=== PATIENT | female | born 1950 | race Caucasian/White ===

== ENCOUNTER 2021-03-15 01:09 | Day surgery (SDC) | payer MEDICARE, SELFPAY ==
[2021-03-07 08:33] VITALS: BMI 23.0
[2021-03-15 06:27] VITALS: BP 112/59; PULSE 98; RESP 16; TEMP 36.5; O2SAT 100
[2021-03-15] MEDS: LACTATED RINGERS 1,000 ML 150 ML IV CONT (06:37)
[2021-03-15 06:42] LABS: Glucose Point of Care 144 mg/dl (65-105)
--- NOTE | 2021-03-15 07:19 | P.PNAN_ITS ---
Anes - Initial Pre Proc Eval Procedure: Operation Date: 03/15/21 07:30 Proposed Procedures p Colonoscopy - Jacobo Ortega MD Date/Time: 03/15/21 07:19 Surgeon: Jacobo Ortega MD Pre Op Diagnosis: diarrhea Patient Data Age: 70 Gender: F Height: 1.65 m Weight: 59.4 kg Last Vital Signs Temp 97.7 F 03/15/21 06:27 Pulse 98 03/15/21 06:27 Resp 16 03/15/21 06:27 BP 112/59 L 03/15/21 06:27 Pulse Ox 100 03/15/21 06:27 Allergies Allergy/AdvReac Type Severity Reaction Status Date / Time No Known Allergies Allergy Verified 03/15/21 06:25 Home Medications Medication Instructions Recorded Confirmed Type dulaglutide 1.5 mg/0.5 mL 1.5 mg SUBCUT WEEKLY 02/12/21 03/15/21 History subcutaneous pen injector metformin 850 mg tablet 1,700 mg PO BID 02/12/21 03/15/21 History aspirin 325 mg PO DAILY 03/07/21 03/15/21 History atorvastatin 20 mg PO HS 03/07/21 03/15/21 History empagliflozin [Jardiance] 25 mg PO DAILY 03/07/21 03/15/21 History glyburide 10 mg PO BID 03/07/21 03/15/21 History lisinopril 10 mg PO DAILY 03/07/21 03/15/21 History multivitamin 1 tablet PO DAILY 03/07/21 03/15/21 History omega 2-mwj-wyr-fish oil [Fish Oil] 1 cap PO DAILY 03/07/21 03/15/21 History omeprazole-sodium bicarbonate 1 cap PO DAILY 03/07/21 03/15/21 History [Zegerid] Laboratory Tests 03/15/21 06:40 POC Capillary Glucose 144 mg/dl H mg/dl (65-105) Patient hx anesthesia problems: none Family hx anesthesia problems: none Results Review: All pre-operative results and documents have been reviewed as part of the pre-operative evaluation. [facility] Past Medical History Medical History (Updated 02/12/21 @ 15:40 by JAMEL Gilmore) Diabetes Encounter for screening colonoscopy HLD (hyperlipidemia) HTN (hypertension) Social History Social History (Updated 02/12/21 @ 13:22 by Yair Spicer MA) Years smoked: 40 Smoking status: Current some day smoker Tobacco type: cigarettes Second hand tobacco smoke exposure: No Alcohol intake: current Substance use: unknown Substance use type: does not use Living arrangements: with family Gender identity (if verbalized by the patient): Female Spiritual care concerns: No Agree to blood products: Yes Anes - Eval Final PreProcedure Day of Procedure 03/15/21 07:19 Patient weight: normal Heart: regular rate and rhythm Lungs: clear to auscultation Airway: Mallampati scale class II Neurological: alert and oriented Last oral intake: >/= 8 hours ASA classification: III Emergent: no Anesthetic plan: proceed Anesthesia type and monitoring: general GIVS and standard monitoring Results Review: All pre-operative results and documents have been reviewed as part of the pre-operative evaluation. Informed Consent: The patient's anesthetic plan and its attendant risks and benefits were discussed with the patient/family/POA. Questions were solicited and answers provided to the satisfaction of the patient/family/POA.
--- NOTE | 2021-03-15 07:31 | WPDGICN ---
Assessment and Plan Assessment and plan (1) Encounter for screening colonoscopy: Code(s): Z12.11 - Encounter for screening for malignant neoplasm of colon Status: Acute Assessment and Plan: Screening colonoscopy to be performed because of age also because of diarrhea. Further recommendations will be given after endoscopy. (2) Diarrhea: Code(s): R19.7 - Diarrhea, unspecified Status: Acute Assessment and Plan: Patient has a 4-5 months history of continuing diarrhea during the day. Differential is quite broad. It may be related to her magnesium supplements and she is advised to discontinue this. Patient does have underlying diabetes for many years suggesting she may have diabetic diarrhea. For this reason fiber supplementation is encouraged. And if diarrhea persists we may want to hold the PPI and changed to something like AcipHex. colonoscopy is anticipated. Further recommendations will be given after endoscopy. (3) Diabetes: Code(s): E11.9 - Type 2 diabetes mellitus without complications Status: Acute GI Consult Note Consult date/time: 03/15/21 07:31 HPI: Margie Gonzalez is a 70 year old female Presents for evaluation of diarrhea. Patient reports 4-5 month history of frequent loose diarrhea stools. This occurs throughout the day. She will have several loose stools during the day very infrequently will be formed. She denies any significant pain. She has had no bleeding. No fever. She has recently been found to have a right adrenal tumor in surgery is planned. Previous colonoscopy 2014 was unremarkable. Patient's family history is noncontributory. Past medical history is significant for acid reflux for which she has been on omeprazole for more than 10 years. She has been treated for diabetes mellitus. And takes iejq-wkm-allrzcy magnesium but does never been told she was deficient. Review of Systems Review of Systems: All systems reviewed & are unremarkable except as noted in HPI and below PMFSH Past Medical History Medical History (Updated 03/15/21 @ 07:33 by Jacobo Ortega MD) Diabetes Encounter for screening colonoscopy HLD (hyperlipidemia) HTN (hypertension) Social History Social History (Updated 02/12/21 @ 13:22 by Yair Spicer MA) Years smoked: 40 Smoking status: Current some day smoker Tobacco type: cigarettes Second hand tobacco smoke exposure: No Alcohol intake: current Substance use: unknown Substance use type: does not use Living arrangements: with family Gender identity (if verbalized by the patient): Female Spiritual care concerns: No Agree to blood products: Yes Meds Home Medications and Allergies Home Medications Medication Instructions Recorded Confirmed Type dulaglutide 1.5 mg/0.5 mL 1.5 mg SUBCUT WEEKLY 02/12/21 03/15/21 History subcutaneous pen injector metformin 850 mg tablet 1,700 mg PO BID 02/12/21 03/15/21 History aspirin 325 mg PO DAILY 03/07/21 03/15/21 History atorvastatin 20 mg PO HS 03/07/21 03/15/21 History empagliflozin [Jardiance] 25 mg PO DAILY 03/07/21 03/15/21 History glyburide 10 mg PO BID 03/07/21 03/15/21 History lisinopril 10 mg PO DAILY 03/07/21 03/15/21 History multivitamin 1 tablet PO DAILY 03/07/21 03/15/21 History omega 3-rnt-yjs-fish oil [Fish Oil] 1 cap PO DAILY 03/07/21 03/15/21 History omeprazole-sodium bicarbonate 1 cap PO DAILY 03/07/21 03/15/21 History [Zegerid] Allergies Allergy/AdvReac Type Severity Reaction Status Date / Time No Known Allergies Allergy Verified 03/15/21 06:25 Vital Signs Vital Signs - 24 hr 03/15/21 06:27 Temperature 97.7 F Pulse Rate 98 Respiratory Rate 16 Blood Pressure 112/59 L Pulse Oximetry 100 Exam Narrative: Physical exam reveals her to be alert. Vital signs stable. HEENT exam is unremarkable. Patient is anicteric. Lungs are clear to auscultation and percussion. Heart is without murmur or extra soun
[2021-03-15 07:56] VITALS: BP 89/42; PULSE 80; RESP 20; O2SAT 98
[2021-03-15 08:06] VITALS: BP 88/51; PULSE 80; RESP 20; O2SAT 98
[2021-03-15 08:16] VITALS: BP 112/55; PULSE 75; RESP 22; O2SAT 94
== END 2021-03-15 08:35 | disposition home or self-care (01) ==
PROVIDERS: PCP Family Medicine; Visit Provider Internal Medicine Gastroenterology
PROC: 0DJD8ZZ Inspection of Lower Intestinal Tract, Via Natural or Artificial Opening Endoscopic (ICD-10-PCS; CPT 45378; principal; 2021-03-15 07:30)
DX: Z12.11 Encounter for screening for malignant neoplasm of colon (principal); R19.7 Diarrhea, unspecified; E11.9 Type 2 diabetes mellitus without complications; I10 Essential (primary) hypertension; E78.5 Hyperlipidemia, unspecified; F17.210 Nicotine dependence, cigarettes, uncomplicated; Z79.84 Long term (current) use of oral hypoglycemic drugs; Z79.82 Long term (current) use of aspirin
CPT/HCPCS: 45380; 82948; 88305; J2704; J7120

== ENCOUNTER 2021-08-03 13:10 | Outpatient (CLI) | payer MEDICARE, SELFPAY ==
--- NOTE | ~2021-08-03 | XR_ITS ---
XR abdomen/kub 1V 08/03/2021 13:39 INDICATION: Gross hematuria TECHNIQUE: KUB COMPARISON: No prior studies for comparison. FINDINGS: Bowel gas pattern is normal. Moderate colonic fecal loading. There are surgical changes in the left hip. Moderate lumbar spondylosis with levocurvature. There is no evidence of free air, mass, organomegaly, ascites or obstruction. No abnormal calculi are seen. The bones appear intact. IMPRESSION: 1: No acute abdominal abnormality identified. Reviewed, dictated and finalized at location A. ICATIONS INTERN
== END 2021-08-03 13:11 | disposition home or self-care (01) ==
PROVIDERS: PCP Family Medicine; Visit Provider Nurse Practitioner Adult Health
DX: R31.0 Gross hematuria (principal)
CPT/HCPCS: 74018

== ENCOUNTER 2022-11-08 10:37 | Outpatient (CLI) | payer MEDICARE, SELFPAY ==
[2022-11-08 10:50] LABS: Basophils Percent Auto 0.5 % (0.2-1.2); Eosinophils Absolute Auto 0.1 K/mm3 (0-0.3); Eosinophils Percent Auto 1.3 % (0-4.4); Hematocrit 37.2 % (37.0-47.0); Hemoglobin 10.6 g/dL (12.0-15.0); Immature Granulocyte Absolute 0.06 K/mm3 (0.00-0.031); Immature Granulocyte Percent A 0.8 % (0-0.5); Lymphocytes Absolute Auto 0.86 K/mm3 (0.9-3.2); Lymphocytes Percent Auto 11.4 % (18.3-44.2); Mean Corpuscular HGB Conc 28.5 g/dl (32-36); Mean Corpuscular Hemoglobin 19.8 pg (26-34); Mean Corpuscular Volume 69.5 fl (80-100); Mean Platelet Volume 8.2 fl (7.4-10.4); Monocytes Absolute Auto 0.6 K/mm3 (0.1-0.6); Monocytes Percent Auto 8.5 % (2.6-8.5); Neutrophils Absolute Auto 5.9 K/mm3 (1.3-6.7); Neutrophils Percent Auto 77.5 % (45.5-73.1); Platelet Count Result 343 k/mm3 (150-375); Red Blood Count 5.35 M/mm3 (4.2-5.4); White Blood Count 7.6 K/mm3 (4.5-10.0)
[2022-11-08 10:56] LABS: Anisocytosis 1+ (NORMAL); Hypochromasia 1+ (NORMAL); Ovalocytes 1+ (NORMAL); Platelet Estimate Adequate (Adequate); Poikilocytosis 1+ (NORMAL); Schistocytes None Seen (NORMAL)
[2022-11-08 12:19] LABS: Iron 30 ug/dL (37-170)
[2022-11-08 12:27] LABS: Alanine Aminotransferase 25 U/L (6-35); Albumin Level 4.5 g/dL (3.5-5.1); Alkaline Phosphatase 112 U/L (38-126); Anion Gap 11 mmol/L (8-16); Aspartate Amino Transferase 31 U/L (14-36); Bilirubin,Total 0.5 mg/dL (0.2-1.3); Blood Urea Nitrogen 7 mg/dL (7-17); Calcium 9.7 mg/dL (8.4-10.2); Carbon Dioxide 26 mmol/L (22-30); Chloride 96 mmol/L (98-107); Estimated Glomerular Filt Rate > 60; Glucose 124 mg/dL (65-110); Potassium 4.3 mmol/L (3.4-5.0); Sodium 133 mmol/L (137-145)
[2022-11-08 12:36] LABS: Percent Iron Saturation 6 % (20-50)
[2022-11-08 12:57] LABS: Ferritin 6.75 ng/mL (11.1-264)
[2022-11-08 13:40] LABS: Folic Acid 10.1 ng/mL (2.76->20)
== END 2022-11-08 10:38 | disposition home or self-care (01) ==
LOC: ANHLAB 10:39
PROVIDERS: PCP Family Medicine; Visit Provider Internal Medicine Hematology & Oncology
DX: D64.9 Anemia, unspecified (principal)
CPT/HCPCS: 36415; 80053; 82607; 82728; 82746; 83540; 83550; 85025

== ENCOUNTER 2022-11-27 10:37 | Outpatient (CLI) | payer MEDICARE, SELFPAY ==
[2022-11-28 18:38] LABS: Vitamin D 25 Hydroxy 66.1 ng/mL
== END 2022-11-28 10:38 | disposition home or self-care (01) ==
PROVIDERS: PCP Family Medicine; Visit Provider Internal Medicine Hematology & Oncology
DX: M85.89 Other specified disorders of bone density and structure, multiple sites (principal)
CPT/HCPCS: 36415; 82306

== ENCOUNTER 2023-02-27 08:43 | Outpatient (CLI) | payer MEDICARE, SELFPAY ==
--- NOTE | ~2023-02-27 | DEXA_ITS ---
Bone Density Report Name: GUZMAN MIMS Age: 72 Sex: Female Ethnicity: White Date of : 1950 Indication: osteopenia; parental hip fracture; height loss; prior fracture; Referring Provider: CLAYTON MANRIQUEZ Study: Bone densitometry was performed. Exam Date: February 27, 2023 Accession number: [id number] Bone Density: Region BMD T-score Z-score Classification AP Spine(L1-L4) 1.022 -0.2 2.0 Normal Femoral Neck (Right) 0.558 -2.6 -0.7 Osteoporosis Total Hip (Right) 0.622 -2.6 -1.0 Osteoporosis World Health Organization criteria for BMD impression classify patients as: Normal (T-score at or above -1.0), Osteopenia (T-score between -1.0 and -2.5), or Osteoporosis (T-score at or below -2.5). 10-year Fracture Risk: FRAX not reported because: Some T-score for Spine Total or Hip Total or Femoral Neck at or below -2.5 Previous Exams: Region Exam Age BMD T-score BMD Change BMD Change Date g/cm2 vs Baseline vs Previous AP Spine (L1-L4) 02/27/2023 72 1.022 -0.2 -0.044 (-4.1%) -0.044 (-4.1%) 02/28/2017 66 1.065 0.2 Total Hip(Right) 02/27/2023 72 0.622 -2.6 -0.184 (-22.8% -0.184 (-22.8% 02/28/2017 66 0.805 -1.1 *Denotes significance at 95% confidence level, LSC for AP Spine = 0.022 g/cm2, LSC for Total Hip = 0.027 g/cm2 Clinical Information Provided by Patient: Has had a low trauma fracture Parent has had a hip fracture Has used the following medications: Vitamin D Patient maximum height was 65 Menopause Age: 56 No regular weight bearing exercise Drinks caffeinated beverages Onset of menses at age 13 Number of children 2 Impression: The patient has established osteoporosis, based on the Right Total Hip T-score and the existence of a prior fracture. The patient has risk factors, including: parental hip fracture, previous fracture. The BMD for the AP Spine (L1-L4) decreased, changing by -4.1% since the last DXA exam. The BMD for the Total Hip(Right) decreased, changing by -22.8% since the last DXA exam. Discussion: HIGH RISK OF FRACTURE. BONE DENSITY IS UNDESIRABLY LOW AT ONE OR MORE SKELETAL SITES, CONSISTENT WITH POSTMENOPAUSAL OSTEOPOROSIS. This patient's lowest T-score, in a patient who has previously fractured, meets the World Health Organization's (WHO) criteria for severe osteoporosis. In untreated patients, the risk of osteoporotic fracture increases approximately two-fold for each 1.0 SD decrease in T-score. Low bone density is not the only risk factor for fracture; also consider factors such as patient's age, frai
== END 2023-02-27 08:44 | disposition home or self-care (01) ==
PROVIDERS: Visit Provider Internal Medicine Hematology & Oncology
DX: M85.89 Other specified disorders of bone density and structure, multiple sites (principal); M81.0 Age-related osteoporosis without current pathological fracture
CPT/HCPCS: 77080

== ENCOUNTER 2023-10-15 14:39 | Outpatient (CLI) | payer MEDICARE, SELFPAY ==
--- NOTE | ~2023-10-15 | CT_ITS ---
Noncontrast CT scan of the left femur CLINICAL HISTORY: Pain technique: Axial noncontrast imaging of the left femur was performed. Sagittal and coronal reformatted images were constructed. Dose reduction technique was used on this scan by u tilizing automated exposure control and iterative reconstruction technique. The dose-length product ( DLP) was 854.62 mGy-cm. Findings: Patient is status post prior ORIF of the proximal left femur for presumed now healed proxim al femoral fracture. No acute fracture or dislocation seen. No hardware complication is evident. Prox imal medullary magda with interlocking dynamic femoral neck screw are present. There is probable mild d egenerative change of the left hip joint. No periosteal reaction identified. No destructive bony lesi on seen. No joint effusion identified. Visualized musculature in the left thigh is unremarkable. No muscle atrophy evident. No soft tissue m ass or fluid collection seen. Subcutaneous soft tissues are unremarkable. IMPRESSION: No acute abnormality. Prior ORIF at the proximal left femur. No hardware complication is evident. Mild degenerative change left hip joint. Reviewed, dictated and finalized at [facility].
== END 2023-10-15 14:40 | disposition home or self-care (01) ==
PROVIDERS: Visit Provider Family Medicine
DX: M79.652 Pain in left thigh (principal); M16.12 Unilateral primary osteoarthritis, left hip
CPT/HCPCS: 36415; 73700; 80053

== ENCOUNTER → 2024-01-12 13:37 | Outpatient (RCR) | payer MEDICARE, SELFPAY ==
--- NOTE | 2022-12-11 16:19 | PHAR ---
Feraheme (ferumoxytol) 510mg weekly times 2 doses, Injectafer (ferric carboxymaltose) 750mg iv weekly times 2 doses and Venofer (iron sucrose) 300mg daily times 3 doses are interchangeable per standing order. Venofer has been subbed for Injectafer due to insurance preference.
[2022-12-16 09:53] VITALS: BP 135/53
[2022-12-16] MEDS: CYANOCOBALAMIN INJ 1,000 MCG/ML VIAL 1000 MCG IM (09:56)
[2022-12-23 13:16] VITALS: BP 131/49; PULSE 84; RESP 18; O2SAT 99
[2022-12-23] MEDS: diphenhydrAMINE HCl INJ 50 MG/ML VIAL 25 MG IV PUSH (13:21)
[2022-12-23] MEDS: ACETAMINOPHEN 325 MG TABLET 650 MG PO (13:22)
[2022-12-23] MEDS: CYANOCOBALAMIN INJ 1,000 MCG/ML VIAL 1000 MCG IM (13:22)
[2022-12-23] MEDS: IRON SUCROSE COMPLEX 300 MG in SODIUM CHLORIDE 0.9% IV 250 ML 176.667 MG IVPB (13:30)
[2022-12-23 15:34] VITALS: BP 133/59
[2022-12-24 13:12] VITALS: BP 120/55; PULSE 88; RESP 14; O2SAT 100
[2022-12-24] MEDS: ACETAMINOPHEN 325 MG TABLET 650 MG PO (13:20)
[2022-12-24] MEDS: diphenhydrAMINE HCl INJ 50 MG/ML VIAL 25 MG IV PUSH (13:21)
[2022-12-24] MEDS: IRON SUCROSE COMPLEX 300 MG in SODIUM CHLORIDE 0.9% IV 250 ML 176.667 MG IVPB (13:27)
[2022-12-24 15:31] VITALS: BP 120/46
[2022-12-25 13:07] VITALS: BP 137/58; PULSE 95; RESP 18; O2SAT 100
[2022-12-25] MEDS: ACETAMINOPHEN 325 MG TABLET 650 MG PO (13:14)
[2022-12-25] MEDS: diphenhydrAMINE HCl INJ 50 MG/ML VIAL 25 MG IV PUSH (13:15)
[2022-12-25] MEDS: IRON SUCROSE COMPLEX 300 MG in SODIUM CHLORIDE 0.9% IV 250 ML 176.667 MG IVPB (13:23)
[2022-12-30 11:02] VITALS: BP 128/48; PULSE 86; TEMP 36.6; O2SAT 100
[2022-12-30] MEDS: CYANOCOBALAMIN INJ 1,000 MCG/ML VIAL 1000 MCG IM (11:10)
[2023-01-06 10:33] VITALS: BP 132/48; PULSE 80; TEMP 36.5; O2SAT 100
[2023-01-06] MEDS: CYANOCOBALAMIN INJ 1,000 MCG/ML VIAL 1000 MCG IM (10:40)
[2023-01-13 12:42] LABS: Basophils Percent Auto 0.3 % (0.2-1.2); Eosinophils Absolute Auto 0.1 K/mm3 (0-0.3); Eosinophils Percent Auto 1.6 % (0-4.4); Hematocrit 42.2 % (37.0-47.0); Hemoglobin 12.4 g/dL (12.0-15.0); Immature Granulocyte Absolute 0.05 K/mm3 (0.00-0.031); Immature Granulocyte Percent A 0.8 % (0-0.5); Lymphocytes Absolute Auto 0.67 K/mm3 (0.9-3.2); Lymphocytes Percent Auto 10.4 % (18.3-44.2); Mean Corpuscular HGB Conc 29.4 g/dl (32-36); Mean Corpuscular Hemoglobin 22.9 pg (26-34); Mean Platelet Volume 8.2 fl (7.4-10.4); Monocytes Absolute Auto 0.6 K/mm3 (0.1-0.6); Monocytes Percent Auto 8.5 % (2.6-8.5); Neutrophils Absolute Auto 5.1 K/mm3 (1.3-6.7); Neutrophils Percent Auto 78.4 % (45.5-73.1); Platelet Count Result 248 k/mm3 (150-375); Red Blood Count 5.41 M/mm3 (4.2-5.4); Red Cell Distribution Width 29.2 % (11.5-14.5); White Blood Count 6.5 K/mm3 (4.5-10.0)
[2023-01-13 13:04] VITALS: BP 130/58; PULSE 84; TEMP 36.7; O2SAT 100
[2023-01-13] MEDS: CYANOCOBALAMIN INJ 1,000 MCG/ML VIAL 1000 MCG IM (13:10)
[2023-01-13 13:26] LABS: Alanine Aminotransferase 30 U/L (6-35); Albumin Level 4.3 g/dL (3.5-5.1); Alkaline Phosphatase 199 U/L (38-126); Anion Gap 10 mmol/L (8-16); Aspartate Amino Transferase 36 U/L (14-36); Bilirubin,Total 0.5 mg/dL (0.2-1.3); Blood Urea Nitrogen 12 mg/dL (7-17); Calcium 9.4 mg/dL (8.4-10.2); Carbon Dioxide 28 mmol/L (22-30); Chloride 97 mmol/L (98-107); Estimated Glomerular Filt Rate > 60; Glucose 145 mg/dL (65-110); Potassium 4.1 mmol/L (3.4-5.0); Sodium 135 mmol/L (137-145)
[2023-01-13 14:35] LABS: Folic Acid > 20.0 ng/mL (2.76->20)
[2023-01-13 16:17] LABS: Iron 63 ug/dL (37-170)
[2023-01-13 16:27] LABS: Percent Iron Saturation 16 % (20-50)
[2023-01-27 12:41] VITALS: BP 126/60; PULSE 85; RESP 18; O2SAT 100
[2023-01-27] MEDS: CYANOCOBALAMIN INJ 1,000 MCG/ML VIAL 1000 MCG IM (12:50)
[2023-02-10 12:37] VITALS: BP 116/50; PULSE 82; TEMP 36.3; O2SAT 99
[2023-02-10] MEDS: CYANOCOBALAMIN INJ 1,000 MCG/ML VIAL 1000 MCG IM (12:42)
[2023-02-24 12:38] VITALS: BP 127/42; PULSE 94; RESP 16; O2SAT 100
[2023-02-24] MEDS: CYANOCOBALAMIN INJ 1,000 MCG/ML VIAL 1000 MCG IM (12:52)
[2023-03-10 13:43] VITALS: BP 132/60; PULSE 94; TEMP 37.1; O2SAT 100
[2023-03-10] MEDS: CYANOCOBALAMIN INJ 1,000 MCG/ML VIAL 1000 MCG IM (13:48)
[2023-03-24 13:48] VITALS: BP 133/48
[2023-03-24] MEDS: CYANOCOBALAMIN INJ 1,000 MCG/ML VIAL 1000 MCG IM (14:06)
[2023-04-01 11:36] LABS: Hematocrit 45.5 % (37.0-47.0); Hemoglobin 14.6 g/dL (12.0-15.0); Mean Corpuscular HGB Conc 32.1 g/dl (32-36); Mean Corpuscular Volume 84.1 fl (80-100); Mean Platelet Volume 8.5 fl (7.4-10.4); Platelet Count Result 231 k/mm3 (150-375); Red Blood Count 5.41 M/mm3 (4.2-5.4); White Blood Count 7.2 K/mm3 (4.5-10.0)
[2023-04-01 16:39] LABS: Iron 68 ug/dL (37-170)
[2023-04-01 16:48] LABS: Percent Iron Saturation 18 % (20-50)
[2023-04-01 18:03] LABS: Folic Acid > 20.0 ng/mL (2.76->20)
[2023-04-07 12:38] VITALS: BP 126/63
[2023-04-07] MEDS: CYANOCOBALAMIN INJ 1,000 MCG/ML VIAL 1000 MCG IM (12:42)
[2023-04-16 17:10] LABS: Alanine Aminotransferase 40 U/L (6-35); Albumin Level 4.2 g/dL (3.5-5.1); Alkaline Phosphatase 171 U/L (38-126); Anion Gap 11 mmol/L (8-16); Aspartate Amino Transferase 43 U/L (14-36); Bilirubin,Total 0.6 mg/dL (0.2-1.3); Blood Urea Nitrogen 9 mg/dL (7-17); Calcium 9.8 mg/dL (8.4-10.2); Carbon Dioxide 25 mmol/L (22-30); Chloride 96 mmol/L (98-107); Estimated Glomerular Filt Rate > 60; Glucose 166 mg/dL (65-110); Sodium 132 mmol/L (137-145)
[2023-04-17 13:10] VITALS: BP 130/65; PULSE 84; O2SAT 99
[2023-04-17] MEDS: DENOSUMAB 60 MG/ML SYRINGE SUB-Q (13:16)
[2023-05-05 12:33] VITALS: BP 131/77; PULSE 94; O2SAT 99
[2023-05-05] MEDS: CYANOCOBALAMIN INJ 1,000 MCG/ML VIAL 1000 MCG IM (12:40)
[2023-06-02 13:02] VITALS: BP 134/69; PULSE 92; O2SAT 99
[2023-06-02] MEDS: CYANOCOBALAMIN INJ 1,000 MCG/ML VIAL 1000 MCG IM (13:13)
[2023-06-30 13:16] LABS: Basophils Percent Auto 0.4 % (0.2-1.2); Eosinophils Absolute Auto 0.2 K/mm3 (0-0.3); Eosinophils Percent Auto 2.3 % (0-4.4); Hematocrit 45.5 % (37.0-47.0); Hemoglobin 14.6 g/dL (12.0-15.0); Immature Granulocyte Absolute 0.06 K/mm3 (0.00-0.031); Immature Granulocyte Percent A 0.8 % (0-0.5); Lymphocytes Absolute Auto 0.73 K/mm3 (0.9-3.2); Lymphocytes Percent Auto 9.3 % (18.3-44.2); Mean Corpuscular HGB Conc 32.1 g/dl (32-36); Mean Corpuscular Volume 90.5 fl (80-100); Mean Platelet Volume 8.8 fl (7.4-10.4); Monocytes Absolute Auto 0.7 K/mm3 (0.1-0.6); Monocytes Percent Auto 9.1 % (2.6-8.5); Neutrophils Absolute Auto 6.1 K/mm3 (1.3-6.7); Neutrophils Percent Auto 78.1 % (45.5-73.1); Platelet Count Result 243 k/mm3 (150-375); Red Blood Count 5.03 M/mm3 (4.2-5.4); Red Cell Distribution Width 14.5 % (11.5-14.5); White Blood Count 7.8 K/mm3 (4.5-10.0)
[2023-06-30 13:19] VITALS: BP 134/54; PULSE 88; TEMP 36.6; O2SAT 98
[2023-06-30] MEDS: CYANOCOBALAMIN INJ 1,000 MCG/ML VIAL 1000 MCG IM (13:30)
[2023-06-30 16:36] LABS: Iron 72 ug/dL (37-170)
[2023-06-30 16:42] LABS: Alanine Aminotransferase 52 U/L (6-35); Albumin Level 4.2 g/dL (3.5-5.1); Alkaline Phosphatase 116 U/L (38-126); Anion Gap 11 mmol/L (8-16); Aspartate Amino Transferase 51 U/L (14-36); Bilirubin,Total 0.6 mg/dL (0.2-1.3); Blood Urea Nitrogen 8 mg/dL (7-17); Calcium 9.6 mg/dL (8.4-10.2); Carbon Dioxide 27 mmol/L (22-30); Chloride 99 mmol/L (98-107); Estimated Glomerular Filt Rate > 60; Glucose 164 mg/dL (65-110); Potassium 4.6 mmol/L (3.4-5.0); Sodium 137 mmol/L (137-145)
[2023-06-30 16:50] LABS: Percent Iron Saturation 19 % (20-50)
[2023-06-30 17:57] LABS: Folic Acid > 20.0 ng/mL (2.76->20)
[2023-08-04 14:06] VITALS: BP 117/51; PULSE 86; TEMP 37.1; O2SAT 99
[2023-08-04] MEDS: CYANOCOBALAMIN INJ 1,000 MCG/ML VIAL 1000 MCG IM (14:13)
[2023-09-01 12:38] VITALS: BP 131/69
[2023-09-01] MEDS: CYANOCOBALAMIN INJ 1,000 MCG/ML VIAL 1000 MCG IM (12:41)
[2023-09-29 12:49] VITALS: BP 117/57
[2023-09-29] MEDS: CYANOCOBALAMIN INJ 1,000 MCG/ML VIAL 1000 MCG IM (12:58)
[2023-10-15 16:43] LABS: Alanine Aminotransferase 36 U/L (6-35); Alkaline Phosphatase 91 U/L (38-126); Anion Gap 6 mmol/L (4-12); Aspartate Amino Transferase 37 U/L (14-36); Bilirubin,Total 0.4 mg/dL (0.2-1.3); Blood Urea Nitrogen 9 mg/dL (7-17); Calcium 9.4 mg/dL (8.4-10.2); Carbon Dioxide 28 mmol/L (22-30); Chloride 101 mmol/L (98-107); Estimated Glomerular Filt Rate > 60; Glucose 110 mg/dL (65-110); Potassium 4.7 mmol/L (3.4-5.0); Sodium 135 mmol/L (137-145)
[2023-10-20 12:13] VITALS: BP 113/55
[2023-10-20] MEDS: DENOSUMAB 60 MG/ML SYRINGE SUB-Q (12:24)
[2023-10-27 12:44] VITALS: BP 135/64; PULSE 88; RESP 16; TEMP 36.8; O2SAT 97
[2023-10-27] MEDS: CYANOCOBALAMIN INJ 1,000 MCG/ML VIAL 1000 MCG IM (12:52)
[2023-11-24 11:34] VITALS: BP 132/65; PULSE 89; O2SAT 99
[2023-11-24] MEDS: CYANOCOBALAMIN INJ 1,000 MCG/ML VIAL 1000 MCG IM (11:41)
[2023-12-22 14:13] VITALS: BP 136/56; PULSE 84; O2SAT 100
[2023-12-22] MEDS: CYANOCOBALAMIN INJ 1,000 MCG/ML VIAL 1000 MCG IM (14:19)
[2024-01-06 09:56] LABS: Basophils Percent Auto 0.4 % (0.2-1.2); Eosinophils Absolute Auto 0.3 K/mm3 (0-0.3); Eosinophils Percent Auto 3.7 % (0-4.4); Hematocrit 45.7 % (37.0-47.0); Immature Granulocyte Absolute 0.04 K/mm3 (0.00-0.031); Immature Granulocyte Percent A 0.6 % (0-0.5); Lymphocytes Absolute Auto 0.67 K/mm3 (0.9-3.2); Lymphocytes Percent Auto 9.2 % (18.3-44.2); Mean Corpuscular HGB Conc 32.8 g/dl (32-36); Mean Corpuscular Hemoglobin 28.7 pg (26-34); Mean Corpuscular Volume 87.4 fl (80-100); Mean Platelet Volume 8.9 fl (7.4-10.4); Monocytes Absolute Auto 0.6 K/mm3 (0.1-0.6); Monocytes Percent Auto 8.3 % (2.6-8.5); Neutrophils Absolute Auto 5.6 K/mm3 (1.3-6.7); Neutrophils Percent Auto 77.8 % (45.5-73.1); Platelet Count Result 262 k/mm3 (150-375); Red Blood Count 5.23 M/mm3 (4.2-5.4); Red Cell Distribution Width 13.7 % (11.5-14.5); White Blood Count 7.3 K/mm3 (4.5-10.0)
[2024-01-06 11:48] LABS: Alanine Aminotransferase 28 U/L (6-35); Albumin Level 4.3 g/dL (3.5-5.1); Alkaline Phosphatase 83 U/L (38-126); Anion Gap 11 mmol/L (4-12); Aspartate Amino Transferase 34 U/L (14-36); Bilirubin,Total 0.7 mg/dL (0.2-1.3); Blood Urea Nitrogen 12 mg/dL (7-17); Calcium 9.5 mg/dL (8.4-10.2); Carbon Dioxide 29 mmol/L (22-30); Chloride 92 mmol/L (98-107); Estimated Glomerular Filt Rate > 60; Glucose 183 mg/dL (65-110); Potassium 4.7 mmol/L (3.4-5.0); Sodium 132 mmol/L (137-145)
[2024-01-06 12:55] LABS: Folic Acid > 20.0 ng/mL (2.76->20); Vitamin B12 > 1000.0 pg/mL (239-931)
== END ==
LOC: AMCINF 12-16 09:27
PROVIDERS: Visit Provider Internal Medicine Hematology & Oncology
DX: D50.9 Iron deficiency anemia, unspecified (principal); D51.9 Vitamin B12 deficiency anemia, unspecified; I10 Essential (primary) hypertension; M81.0 Age-related osteoporosis without current pathological fracture; E11.9 Type 2 diabetes mellitus without complications; E78.5 Hyperlipidemia, unspecified
CPT/HCPCS: 36415; 80053; 82607; 82728; 82746; 83540; 83550; 84443; 85025; 85027; 96365; 96366; 96372; 96375; A9270; J0897; J1200; J1756; J3420; J7050

== ENCOUNTER 2024-06-10 12:45 | Outpatient (CLI) | payer MEDICARE, SELFPAY ==
--- NOTE | ~2024-06-10 | XR_ITS ---
XR cervical spine 4-5V Ordering provider: Kit Hull, History: . Cervicalgia . Comparison: None. FINDINGS: VERTEBRAL BODIES: Normal height and alignment. No visible fracture or subluxation. The dens is intact . DISK SPACES: Well maintained. Multilevel facet joint disease. Multilevel uncovertebral joint osteoart hritic changes. PARASPINOUS SOFT TISSUES: No prevertebral soft tissue swelling. IMPRESSION: No acute osseous abnormality cervical spine. Reviewed, dictated and finalized at location A. ATTENDANT
== END 2024-06-10 12:46 | disposition home or self-care (01) ==
PROVIDERS: Visit Provider Family Medicine
DX: M54.2 Cervicalgia (principal)
CPT/HCPCS: 72050

== ENCOUNTER 2024-07-14 16:30 | Emergency (ER) | payer MEDICARE, SELFPAY ==
--- NOTE | ~2024-07-14 | CT_ITS ---
EXAMINATION: CT cervical spine wo con DATE: 07/14/2024 18:50 INDICATION: Right upper extremity radiculopathy. TECHNIQUE: Computed tomography (CT) of the cervical spine was performed without intravenous contrast. Automated exposure control and iterative reconstruction technique were employed. The dose-length pro duct was 116.89 mGy-cm. COMPARISON: Cervical spine radiographs 06/10/2024 FINDINGS: There is 2 mm anterolisthesis of C7 on T1. There is 5 degrees levocurvature of cervical spi ne. There is chronic compression fracture of T1 with 2/5 loss of height. There is mildly decreased di sc height at C4-C5. The following disc levels are specifically discussed: C2-C3: There is severe right and mild left uncovertebral joint osteoarthritis. There is severe right and mild left facet joint osteoarthritis. There is moderate right neural foraminal stenosis. There is no central canal stenosis. C3-C4: There is no uncovertebral joint osteoarthritis. There is severe bilateral facet joint osteoart hritis. There is no neural foraminal stenosis. There is mild central canal stenosis. C4-C5: There is mild bilateral uncovertebral joint osteoarthritis. There is severe right and mild lef t facet joint osteoarthritis. There is mild right neural foraminal stenosis. There is mild central ca nal stenosis. C5-C6: There is no uncovertebral joint osteoarthritis. There is severe bilateral facet joint osteoart hritis. There is no neural foraminal stenosis. There is mild central canal stenosis. C6-C7: There is no uncovertebral joint osteoarthritis. There is moderate right and severe left facet joint osteoarthritis. There is no neural foraminal stenosis. There is no central canal stenosis. C7-T1: There is no uncovertebral joint osteoarthritis. There is severe bilateral facet joint osteoart hritis. There is mild bilateral neural foraminal stenosis. There is no central canal stenosis. IMPRESSION: 1. Moderate right neural foraminal stenosis at C2-C3. Otherwise mild cervical spondylosis. Reviewed, dictated and finalized at location A. VANCE MANAGER IMPRESSION: 1. Moderate right neural foraminal stenosis at C2-C3. Otherwise mild cervical s pondylosis.
--- OUTSIDE RECORDS SUMMARY | 2024-07-14 16:52 | XMS_ITS | Referral Summary ---
Author Organization [facility] [address] Address [address] [place] [address] Care Team Providers Care 911 Operator Name Role Phone Prince Morse MD Unavailable [phone] Leola Lentz MD Primary Care Provider [phone] Allergies No known active allergies Medications glyBURIDE (DIABETA) 5 mg tablet Take 10 mg by mouth 2 (two) times a day with meals Active metFORMIN (GLUCOPHAGE) 850 mg tablet Take 2 tablets (1,700 mg total) by mouth 2 (two) times a day with meals Active lisinopriL (PRINIVIL,ZEST RIL) 10 mg tablet Take 1 tablet (10 mg total) by mouth daily Active empagliflozin (JARDIANCE) 25 mg tabletIndicati ons:type 2 diabetes mellitus Take 25 mg by mouth daily Active omeprazole (PriLOSEC) 20 mg capsule Take 20 mg by mouth daily PATIENT IS TAKING ZEGRID OTC Active calcium citrate-vitami n D3 (CITRACAL+D) 315 mg-5 mcg (200 unit) per tablet Take 1 tablet by mouth 2 (two) times a day PATIENT IS TAKING OTC CITRACAL Activ e dekip-0-dll-ep a-dpa-fish oil 1,050-1,200 mg capsule 1 capsule PATIENT IS TAKING OTC ULTIMATE OMEGA Active magnesium oxide-Mg AA chelate 300 mg capsule Take by mouth PATIENT IS TAKING OTC MAGNESIUM/POTASSIUM /ASPOROTATES Active atorvastatin (LIPITOR) 20 mg tablet Take 1 tablet (20 mg total) by mouth daily Active aspirin 325 mg tablet Take 1 tablet (325 mg total) by mouth daily Active dulaglutide (TRULICITY) 1.5 mg/0.5 mL pen injector Inject 1.5 mg under the skin once a week Active ALPRAZolam (XANAX) 0.5 mg tablet alprazolam 0.5 mg tablet Active azithromycin (ZITHROMAX) 250 mg tablet azithromycin 250 mg tablet TAKE 2 TABLETS BY MOUTH TODAY, THEN TAKE 1 TABLET DAILY FOR 4 DAYS Active benzonatate (TESSALON) 100 mg capsule benzonatate 100 mg capsule TAKE ONE CAPSULE 3 TIMES A DAY Active canagliflozin (Invokana) 300 mg tablet Invokana 300 mg tablet Active celecoxib (CeleBREX) 200 mg capsule Celebrex 200 mg capsule Active clotrimazole-b etamethasone (LOTRISONE) cream clotrimazole-betame thasone 1 %-0.05 % topical cream APPLY TO AFFECTED AREA(S) TWICE DAILY X 2 WEEKS Active guaiFENesin-co deine (GUAITUSS AC) liquid 100-10 mg/5 mL Cheratussin AC 10 mg-100 mg/5 mL oral liquid Active dapagliflozin (Farxiga) 10 mg tablet Farxiga 10 mg tablet Active fluconazole (DIFLUCAN) 150 mg tablet fluconazole 150 mg tablet TAKE 1 TABLET BY MOUTH Active fluticasone propionate (FLONASE) 50 mcg/actuation nasal spray fluticasone propionate 50 mcg/actuation nasal spray,suspension Active HYDROcodone-ac etaminophen (NORCO) 7.5-325 mg per tablet hydrocodone 7.5 mg-acetaminophen 325 mg tablet Active levoFLOXacin (LEVAQUIN) 500 mg tablet levofloxacin 500 mg tablet TAKE 1 TABLET BY MOUTH DAILY Active linagliptin (TRADJENTA ORAL) Tradjenta 03/14/20 16 Active phenazopyridin e (PYRIDIUM) 200 mg tablet phenazopyridine 200 mg tablet Active SITagliptin (Januvia) 100 mg tablet Januvia 100 mg tablet Take 1 tablet every day by oral route. 08/24/19 14 Active ubidecarenone- omega 3-vit E (Co J-75-Ekvmpmi E-Fish Oil) 25-150-200 mg-mg-unit capsule Co J-03-Vofcwtr E-Fish Oil 25-150-200 mg-mg-unit capsule 12/20/19 21 Active venlafaxine (EFFEXOR) 37.5 mg tablet venlafaxine 37.5 mg tablet Active metoprolol XL (TOPROL-XL) 25 mg extended release tablet Take 25 mg by mouth daily 02/27/20 21 Active Active Problems Problem Noted Date Diagnosed Date Abdominal pain 03/02/2021 Acute pelvic pain 03/02/2021 Anxiety 03/02/2021 Chronic diarrhea 03/02/2021 Chronic vaginitis 03/02/2021 Depressive disorder 03/02/2021 Hematochezia 03/02/2021 Lipoma of lower back 03/02/2021 Liver mass 03/02/2021 Raynaud's disease 03/02/2021 Referred otalgia 03/02/2021 Xiphodynia 03/02/2021 Adrenal mass greater than 4 cm in diameter 01/22 Assessment & Plan (01/22/2021 2:01 PM CDT): There are two main issues to address with this enlarging adrenal mass: 1) is it functioning? and 2) is it malignant? I am not convinced that she has a neuroendocrine tumor causing the carcinoid syndrome as her only compatible symptom is diarrhea and the urinary 5-HIAA levels were actually normal in absolute terms and only elevated when compared to the urinary creatinine. She does not clearly have evidence of other adrenal hormone hypersecretion by history or exam, but we will rule out primary aldosteronism, Oakman's, androgen excess, and pheochromocytoma with the appropriate studies as below. As for the question of malignancy vs benignity, it is difficult to say. Any mass that is > 4 cm is certainly more likely to be malignant. However, the radiographic appearance of the nodule, resembling that of an angiomyolipoma, is consistent with a benign etiology. We need a dedicated adrenal protocol CT with washout studies, which I have ordered. Once we have the biochemical and radiologic data, we will determine the best course of action. Any hormonally active or malignant adrenal mass must be surgically removed. In her case, since the mass is > 4 cm, I would advocate for surgical referral unless her studies are unequivocally benign. I shared my reasoning with the patient and her daughter and they both verbalized understanding. Abnormal cardiovascular stress test 01/16/2021 Carcinoid syndrome 01/16/2021 Shortness of breath 01/16/2021 Diabetes mellitus 12/19/2020 Dizziness 12/19/2020 Hyperlipidemia 12/19/2020 Irregular heart beats 12/19/2020 Arthritis 12/19/2020 Palpitations 12/19/2020 Ventricular premature beats 12/19/2020 Social History Tobacco Use Types Packs/Day Years Used Date Smoking Tobacco: Former Cigarettes Q uit: 2010 Smokeless Tobacco: Never Personal Safety Answer Date Recorded Getting School Help Needed Not on file 07/09 Comments Unknown Sex and Gender Information Value Date Recorded Sex Assigned at Not on file Legal Sex Female 7:05 PM [employer] Gender Identity Not on file Sexual Orientation Not on file Last Filed Vital Signs Vital Sign Reading Time Taken Comments Blood Pressure 145/81 08/05/2023 9:30 AM [employer] Pulse 96 08/05/2023 9:30 AM [employer]ER [employer] Temperature 36.3 ??C (97.4 ??F) 08/05/2023 9:30 AM CS T Respiratory Rate 16 08/05/2023 9:30 AM [employer]CER MAKER Oxygen Saturation 98% 08/05/2023 9:30 AM [employer]CER MAKER Inhaled Oxygen Concentration - - Weight 55 kg (121 lb 3.2 oz) 08/05/2023 9:30 AM [employer]CER MAKER Height 162.6 cm (5' 4 ) 08/05/2023 9:30 AM [employer]CER MAKER Body Mass Index 20.8 08/05/2023 9:30 AM [employer]CER MAKER Plan of Treatment Not on file Procedures Procedure Name Priority Date/Time Associated Diagnosis Comments COMPREHENSIVE METABOLIC PANEL Routine 01/22/2021 12:13 PM CDT Adrenal mass greater than 4 cm in diameter (CMS/HCC) (HCC) from Last 3 Months or Most Recently Relevant to Health Maintenance Results * (ABNORMAL) Comprehensive metabolic panel (01/22/2021 12:13 PM CDT) Glucose 149(H) 65 - 99 mg/dL [facility] - 01 BUN 12 8 - 27 mg/dL [facility] - 01 Creatinine, Serum 0.62 0.57 - 1.00 mg/dL [facility] - 01 eGFR If NonAfricn Am 92 >59 mL/min/1.7 3 [facility] - 01 eGFR If Africn Am 106 >59 mL/min/1.7 3 [facility] - 01 Comment: [facility] currently reports eGFR in compliance with the current ??recommendations of the National Kidney Foundation. [facility] will ??update reporting as new guidelines are published from the NKF-ASN ??Task force. BUN/creat ratio 19 12 - 28 [facility] - 01 Sodium 134 134 - 144 mmol/L [facility] - 01 Potassium, sr 5.3(H) 3.5 - 5.2 mmol/L [facility] - 01 Chloride 94(L) 96 - 106 mmol/L [facility] - 01 CO2 21 20 - 29 mmol/L [facility] - 01 Calcium 10.4(H) 8.7 - 10.3 mg/dL [facility] - 01 Protein, sr 6.9 6.0 - 8.5 g/dL [facility] - 01 Albumin 4.7 3.8 - 4.8 g/dL [facility] - 01 Globulin, Total 2.2 1.5 - 4.5 g/dL [facility] - 01 A/G Ratio 2.1 1.2 - 2.2 [facility] - 01 Bilirubin, Total 0.5 0.0 - 1.2 mg/dL [facility] - 01 Alk phos 102 48 - 121 IU/L [facility] - 01 AST 24 0 - 40 IU/L [facility] - 01 ALT 21 0 - 32 IU/L [facility] - 01 Blood specimen (specimen) 01/22/2021 12:13 PM CDT 01/22/2021 Narrative [facility] - 01/28/2021 8:07 PM CDT Performed at: ??01 - [facility] [address] ??[id number] [employer]: Daniel Horowitz PhD, Phone: ??[phone] us Prince Morse MD LAB BLOOD ORDERABLES Fi nal Result [facility] - 01 from Last 3 Months or Most Recently Relevant to Health Maintenance Insurance MEDICARE AET SENIOR SUPPLEMENT MEDICARE AETNA SENIOR SUPPLEMENT MEDICARE AETNA SENIOR SUPPLEMENT AETNA MEDICARE AETNA SENIOR SUPPLEMENT Care Teams 911 Operator Relationship Specialty Start Date End Date Leola eLntz MD [facility] [place] [address] PCP - General Family Medicine 01/22/21 Prince Morse MD [address] [facility] [address] [address] Consulting Physician Endocrinology Diabetes & Metabolism 01/17/21
--- OUTSIDE RECORDS SUMMARY | 2024-07-14 16:52 | XMS_ITS | Patient Health Summary ---
Author Organization [facility] Address [address] [place] [address] Care Team Providers Care Director Of Career Services Name Role Phone Leola Lentz MD Primary Care Provider [phone] Note from [facility],non-owned Affiliates and Associated Physician Practices is amultiple site organization consisting of ambulatory clinics and hospital sitesin [place], [place], [place] and [place]. This disclosure is being madepursuant to the Care Everywhere program and may not contain all information available regarding this patient. Last updated 18.[facility] Social History Tobacco Use Types Packs/Day Years Used Date Smoking Tobacco: Never Assessed Sex and Gender Information Value Date Recorded Sex Assigned at Not on file Gender Identity Not on file Sexual Orientation Not on file Procedures * PATH CONSULT ON REFERRED CASE(Performed 07/20/2021) Performed for Illness, unspecified Results * PATH CONSULT ON REFERRED CASE (07/20/2021 2:15 PM SHOE COVERER) Final Diagnosis URINE, VOIDED: - Acute inflammation - No malignant cells seen (TPS Category II, negative for high grade urothelial carcinoma) 07/27/2021 10:22 AM [facility] Microscopic Description and Comment Performed. 07/27/2021 10:22 AM [facility] Clinical History Hematuria 07/27/2021 10:22 AM [facility] Disclaimer The performance characteristics of all immunohistochemical and indirect immunofluorescence stains (if any) cited in this report were determined by the Histopathology Laboratory of [facility]. Some of these tests were developed by our own laboratory and have not been cleared or approved by the US Food and Drug Administration. The FDA does not require this test to go through premarket FDA review. These tests are used for clinical purposes. They should not be regarded as investigational or for research. This laboratory is certified under the Clinical Laboratory Improvement Amendments (CLIA) as qualified to perform high complexity clinical laboratory testing. This case has been personally reviewed and interpreted by the attending (teaching) pathologist. 07/27/2021 10:22 AM [facility] Addendum 1 Materials received was not included in the original pathology report. Prepared slide received from Urology [facility] [id number]. All material will be returned. 07/27/2021 10:22 AM [facility] Addendum electronically signed by Meliza Jackson on 07/27/2021 at 10:22 AM Case Report Surgical Pathology Report ? Case: [id number] ? Authorizing Provider: ??Sara Reyna MD ? Collected: ? 07/20/2021 02:15 PM ? Ordering Location: ? [facility] ? Received: ?07/24/2021 02:16 PM ? Pathologist: ? Amanda Cornelius MD ? Specimen: ?Slide Consultation ? 07/27/2021 10:22 AM [facility] Embedded Images 07/27/2021 10:22 AM SHOE COVERER [facility] Pathology/Cytolo gy SURGICAL PATHOLOGY CONSULTATION AND REPORT ON REFERRED SLIDES PREPARED ELSEWHERE / Unknown 07/20/2021 2:15 PM SHOE COVERER 07/24/2021 2:16 PM SHOE COVERER Sara Reyna MD LAB - PATHOLOGY/CYTO LOGY ORDERABLES Performing Organization Address City/State/[facility] Co de Phone Number [facility] [address] [phone] Care Teams Director Of Career Services Relationship Specialty Start Date End Date Leola Lentz MD [address] [place] [address] [address] [place] [id number] PCP - General 02/21/15
--- OUTSIDE RECORDS SUMMARY | 2024-07-14 16:52 | XMS_ITS | Clinical Summary ---
Author Organization [facility] [employer] Address [address] [place] [address] Care Team Providers Care Solutions Architect Consultant Name Role Phone Leola Lentz MD Primary Care Provider Source Comments [facility],non-owned Affiliates and Associated Physician Practices is amultiple site organization consisting of ambulatory clinics and hospital sitesin [place], [place], [place] and [place]. This disclosure is being madepursuant to the Care Everywhere program and may not contain all information available regarding this patient. Last updated 18.[facility] [employer] Social History Tobacco Use Types Packs/Day Years Used Date Smoking Tobacco: Never Assessed Sex and Gender Information Value Date Recorded Sex Assigned at Not on file Gender Identity Not on file Sexual Orientation Not on file Plan of Treatment Health Maintenance Due Date Last Done Comments BONE DENSITY TESTING 1950 COLOGUARD (AGES 45-75) - COL ON CA SCREENING 1950 COLON MONITORING 1951 COLONOSCOPY - COLON CA SCREENING 1950 CT COLONOGRAPHY - COLON CA SCREENING 1950 Colorectal Cancer Screening 1950 FIT - COLON CA SCREENING 1951 FLEX SIG - COLON CA SCREENING 1950 LIPID TESTING 1950 MAMMOGRAM 1950 MEDICARE AWV ? 12 MONTHS 1950 HEPATITIS C SCREENING 05/25/1969 DTAP/TDAP/TD VACCINES (1 - Tdap) 1970 PNEUMOCOCCAL VACCINE 50+ (1 of 1 - PCV) 2001 ZOSTER VACCINE (1 of 2) 2001 COVID-19 VACCINE (1 - 2023-2 5 season) 2024 INFLUENZA VACCINE (#1) 2024 DEPRESSION SCREENING 06/16/2024 Respiratory Syncytial Virus (RSV) Vaccine Pt: or over 60 yrs (1 - 1-dose 75+ series) 2026 HEPATITIS B VACCINE Aged Out No longe r eligible based on patient's age to complete this topic HIB VACCINE Aged Out No longer eligi ble based on patient's age to complete this topic HPV VACCINE Aged Out No longer eligi ble based on patient's age to complete this topic MENINGOCOCCAL (Group B) VACCINE Aged Out No longer eligible based on patient's age to complete this topic MENINGOCOCCAL VACCINE Aged Out No hector sharon eligible based on patient's age to complete this topic Care Teams Solutions Architect Consultant Relationship Specialty Start Date End Date Leola Lentz MD [facility] [place] [id number] PCP - General 02/21/15
--- OUTSIDE RECORDS SUMMARY | 2024-07-14 16:52 | XMS_ITS | Referral Summary ---
Author Organization [facility] Address [address] [place] [address] Care Team Providers Care Unionmelt Operator Name Role Phone Leola Lentz MD Primary Care Provider [phone] Source Comments [facility],non-owned Affiliates and Associated Physician Practices is amultiple site organization consisting of ambulatory clinics and hospital sitesin [place], [place], [place] and [place]. This disclosure is being madepursuant to the Care Everywhere program and may not contain all information available regarding this patient. Last updated 18.[facility] [employer] Social History Tobacco Use Types Packs/Day Years Used Date Smoking Tobacco: Never Assessed Sex and Gender Information Value Date Recorded Sex Assigned at Not on file Gender Identity Not on file Sexual Orientation Not on file Plan of Treatment Not on file Care Teams Unionmelt Operator Relationship Specialty Start Date End Date Leola Lentz MD [address] [place] [address] [address] [place] [id number] PCP - General 02/21/15
--- OUTSIDE RECORDS SUMMARY | 2024-07-14 16:52 | XMS_ITS | CONTINUITY OF CARE DOCUMENT ---
Author Name iftikhar buitrago Address Unknown Organization [facility] Address [address] [place] [address] [address] [place] [address] Phone [phone] Care Team Providers Care Education Managers Name Role Phone Vivek MO, Radames Unavailable [place], RUNDA Unavailable [phone] [place], RUNDA Unavailable [phone] PROBLEMS Condition Status Date Provider Notes Irregular heart beats active Radames Dior Hyperlipidemia active Radames Doyle MD Diabetes mellitus active Radames Doyle MD Right adrenal mass active Chris Juarezt Carcinoid syndrome completed - Radames Doyle MD Abnormal cardiovascular stre ss test--20% mid RCA with ectasia, tortous LAD, Circ, EF 60% active Radames Doyle MD Shortness of breath stress n uc --stress nuc inf wall ischemia, echo nl LVEF mild TR 12/2020 active Radames Doyle MD Palpitations active Radames Doyle MD ARTHRITIS active Radames Doyle MD Dizziness active Radames Doyle MD PVC's active Radames Doyle MD ENCOUNTERS Date Type Provider Location Encounter Diag nosis - In-person encounter Office Visit Radames Doyle MD [facility] Shortness of breath stress nuc --stress nuc inf wall ischemia, echo nl LVEF mild TR bnormal cardiovascular stress test--20% mid RCA with ectasia, tortous LAD, Circ, EF 60%Carcinoid syndrome - In-person encounter Office Visit Radames Doyle MD [facility] Shortness of breath stress nuc --stress nuc inf wall ischemia, echo nl LVEF mild TR bnormal cardiovascular stress test--20% mid RCA with ectasia, tortous LAD, Circ, EF 60%Right adrenal mass - In-person encounter Office Visit Radames Doyle MD [facility] PVC'sDizzinessARTHRITI SPalpitations VITAL SIGNS Date Observation Value Provider Body Mass Index (Ratio) 23.34 kg/m2 Karlos Doyle MD blood pressure, diastolic 68 mm[Hg] Rh onda Lissa blood pressure, systolic 127 mm[Hg] Rho ndabhinav Alcaraz pulse rate 86 /min Cookie Alcaraz respiratory rate E&M 16 /min Cookieabhinav Alcaraz weight E&M 136 [lb_av] Cookie Lissa blood pressure, resting Yes Timoteon cecy Alcaraz blood pressure, cuff size regular oncecy Alcaraz height E&M 64 [in_i] Cookieabhinav Alcaraz Body Mass Index (Ratio) 23.86 kg/m2 Karlos Doyle MD blood pressure, diastolic 65 mm[Hg] Rh onda Lissa blood pressure, systolic 115 mm[Hg] Rho nda Lissa oxygen saturation, oximetry 98 % Cookie Lissa pulse rate 89 /min Cookie Lissa respiratory rate E&M 18 /min Cookie Lissa weight E&M 139 [lb_av] Cookie Lissa blood pressure, resting Yes Rhon da Lissa blood pressure, cuff size regular onda Lissa height E&M 64 [in_i] Cookie Lissa Body Mass Index (Ratio) 23.86 kg/m2 Karlos Doyle MD blood pressure, diastolic 68 mm[Hg] Skyla nkLogic blood pressure, systolic 124 mm[Hg] Lola kLogic blood pressure, diastolic 68 mm[Hg] Sh daily Duboseford blood pressure, systolic 124 mm[Hg] She maximilian Verdugo pulse rate 91 /min Manjinder blue oxygen saturation, oximetry 99 % Manjinder Verdugo respiratory rate E&M 18 /min Nneka Verdugo weight E&M 139 [lb_av] Manjinder blue height E&M 64 [in_i] Manjinder blue blood pressure, resting No Eliceo alf Verdugo ALLERGIES No Known Drug Allergies HISTORY OF MEDICATION USE Medication Status Instructions Dates Provider Indications Com ments lisinopril 5 mg tablet active Take 1 tablet by mouth once daily Liz Andrade metoprolol succinate 25 mg tablet extended release 24 hr active Take 1 tablet by mouth once a day Jose Mendoza CALCIUM & VIT D3 BONE HEALTH LIQD active [facility] Ver[place] Co K-02-[id number] E-Fish Oil 25-150-200 mg-mg-unit capsule active [facility] [place] CALCIUM MAGNESIUM 750 300-300 MG TABS [facility] DuboseVerdu[facility] metformin 850 mg tablet [facility] [place], 90 days supply, Filled 10/10/2020 glyburide 5 mg tablet [facility] [place], 90 days supply, Filled 10/23/2020 Jardiance 25 mg tablet [facility] [place], 90 days supply, Filled 11/22/2020 Trulicity 1.5 mg/0.5 mL pen injector [facility] [place] [facility], 28 days supply, Filled 11/30/2020 atorvastatin 20 mg tablet active Manjinder Verdugo #90, 90 days supply, Filled 12/03/2020 lisinopril 5 mg tablet completed TAKE 1 TABLET BY MOUTH EVERY DAY - Liz Andrade SOCIAL HISTORY Date Observation Value Provider smoking status Current every day smoker Evan kimmy Alcaraz social history E&M Smoking Histo ry: P melinda currently smokes every day. P atolena has been counseled to quit. Jose Mendoza social history reviewed E&M revi ewed - no changes required Jose Mendoza number of grandchildren Radames Jung social history E&M S moking History: P atolena currently smokes every day. P atolena has been counseled to quit. Chris Jung smoking/tobacco cess ation, patient education and counseling yes Chris Jung social history reviewed E&M revi ewed - no changes required Chris Jung smoking status Current every day smoker Evan Alcaraz social history E&M S moking History: P atolena currently smokes every day. P atolena has been counseled to quit. Radames Doyle MD social history reviewed E&M revi ewed - no changes required Radames Doyle MD smoking/tobacco cess ation, patient education and counseling yes Radames Doyle MD oral tobacco use per day 2 cigs/day Roly Doyle MD chewing tobacco use Current Radames jarvis MD smoking, date started 1970 David vicente Kartik smoking history, tot al pack/day 2 Manjinder Kartik cigarette use yes Manjinder ortiz smoking status Current every day smoker S harrison Verdugo FAMILY HISTORY Family Member Condition Mother Family History of Di abetes: Mother Family History of Co ngestive Heart Failure: Mother Family History of Di abetes: Mother Family History of Di abetes: INSURANCE PROVIDERS Payer name Policy type / Coverage type Ellis red green party ID [employer] S[facility] Commercial insuran company [id number] [place] MEDICARE Medicare [id number] TREATMENT PLAN Date Name Performer [id number],S, Jose Mantillamedza i [id number],S, Jose Ahmedza i [id number],S, Jose Ahmedza i [id number],S, Jose Annaleemedza i [id number],S, Jose Mantillamedza i [id number],S, Chris Jung [id number],S, Chris Jung [id number],S, Chris Jung [id number],W, Chris Jung [id number],W, T he risks and benefits of the procedure, including but not limited the risk of heart attack, , stroke, bleeding, kidney failure, and loss of limb as well as the alternative of continued medical therapy, stress testing or bypass surgery were discussed with the patient and any present family members and the patient wishes to proceed with cardiac cath and stenting. The patient and family had opportunity to discuss this with us. Written material including informed consent was given out. Chris Jung [id number],S, Chris Jung [id number],S, Chris Jung [id number],SRadames MD [id number],SRadames MD [id number],SRadames MD [id number],SRadames MD [id number],SRadames MD Cardiology Jose Mendoza Cardiology Jose Mendoza Cardiology Jose Mendoza Cardiology Jose Mendoza Cardiology Jose Mendoza Cardiology Chris Jung Cardiology Chris Jung Cardiology Chris Jung Cardiology Chris Jung Cardiology: T he risks and benefits of the procedure, including but not limited the risk of heart attack, , stroke, bleeding, kidney failure, and loss of limb as well as the alternative of continued medical therapy, stress testing or bypass surgery were discussed with the patient and any present family members and the patient wishes to proceed with cardiac cath and stenting. The patient and family had opportunity to discuss this with us. Written material including informed consent was given out. Chris Jung Cardiology Chris Jung Cardiology Chris Jung Cardiology Radames Doyle MD Cardiology Radames Doyle MD Cardiology Radames Doyle MD Cardiology Radames Doyle MD Cardiology Radames Doyle MD Date Name Cardiac Cath - Left - [facility] Monitor - Telemetry (Mobile Cardiac) Stress Regadenoson HYDROXYINDOLEACETIC ACID, 5-,RANDOM URINE HEMOGLOBIN A1c TSH, free T4, total T3 LIPID PANEL CBC (INCLUDES DIFF/P LT) COMPREHENSIVE METABO LIC PANEL, W/EGFR Complete Echo HISTORY OF PROCEDURES Procedure Date Procedure Name Provider Procedure Notes S tatus [place] Cardiac Telem etry - Tech Radames Doyle MD completed [place] Cardiac Telem etry - Prof Radames Doyle MD completed EKG Radames Doyle MD completed
--- OUTSIDE RECORDS SUMMARY | 2024-07-14 16:52 | XMS_ITS | Encounter Summary ---
Author Organization [facility] Address [address] [place] [address] Care Team Providers Care Spd Tech Name Role Phone Leola Lentz MD Primary Care Provider [phone] Encounter Details Date Type Department Care Team (Late st Contact Info) Description 07/24/2021 Lab Requisition [facility] [address] [place] [address] Sara Reyna MD [address] [place], [place] [id number] Illness, unspecified Social History Tobacco Use Types Packs/Day Years Used Date Smoking Tobacco: Never Assessed Sex and Gender Information Value Date Recorded Sex Assigned at Not on file Gender Identity Not on file Sexual Orientation Not on file documented as of this encounter Plan of Treatment Not on file documented as of this encounter Procedures Procedure Name Priority Date/Time Associated Diagnosis Comments PATH CONSULT ON REFERRED CASE Routine 07/20/2021 2:15 PM MANUFACTURING SUPERVISOR Illness, unspecified documented in this encounter Results * PATH CONSULT ON REFERRED CASE (07/20/2021 2:15 PM MANUFACTURING SUPERVISOR) Final Diagnosis URINE, VOIDED: - Acute inflammation - No malignant cells seen (TPS Category II, negative for high grade urothelial carcinoma) 07/27/2021 10:22 AM MANUFACTURING SUPERVISOR [facility] Microscopic Description and Comment Performed. 07/27/2021 10:22 AM MANUFACTURING SUPERVISOR [facility] Clinical History Hematuria 07/27/2021 10:22 AM MANUFACTURING SUPERVISOR [facility] Disclaimer The performance characteristics of all immunohistochemical and indirect immunofluorescence stains (if any) cited in this report were determined by the Histopathology Laboratory of [facility]. Some of these tests were developed [...] the attending (teaching) pathologist. 07/27/2021 10:22 AM [facility] Addendum 1 Materials received was not included in the original pathology report. Prepared slide received from [facility] [id number]. All material will be returned. 07/27/2021 10:22 AM [facility] Addendum electronically signed by Meliza Jackson on 07/27/2021 at 10:22 AM Case Report Surgical Pathology Report ? Case: [id number] ? Authorizing Provider: ??Sara Reyna MD ? Collected: ? 07/20/2021 02:15 PM ? Ordering Location: ? [facility] ? Received: ?07/24/2021 02:16 PM ? Pathologist: ? Amanda Cornelius MD ? Specimen: ?Slide Consultation ? 07/27/2021 10:22 AM MANUFACTURING SUPERVISOR [facility] Embedded Images 07/27/2021 10:22 AM MANUFACTURING SUPERVISOR [facility] Pathology/Cytolo gy SURGICAL PATHOLOGY CONSULTATION AND REPORT ON REFERRED SLIDES PREPARED ELSEWHERE / Unknown 07/20/2021 2:15 PM MANUFACTURING SUPERVISOR 07/24/2021 2:16 PM MANUFACTURING SUPERVISOR Sara Reyna MD LAB - PATHOLOGY/CYTO LOGY ORDERABLES Performing Organization Address City/State/[facility] Co de Phone Number [facility] [address] [phone] documented in this encounter Visit Diagnoses Diagnosis Illness, unspecified documented in this encounter Care Teams Spd Tech Relationship Specialty Start Date End Date Leola Lentz MD [address] [place] [phone] PCP - General 02/21/15 documented as of this encounter
--- OUTSIDE RECORDS SUMMARY | 2024-07-14 16:52 | XMS_ITS | Data Portability ---
Author Organization [employer], Main Office Address [address] [place] [address] Care Team Providers Care Electrical Engineering Designer Name Role Phone LEOLA HECTOR Primary Care Provider [phone] LEOLA HECTOR Referring Provider MAMTA RAMIREZ Primary Care Provider Unavailabl e Assessment Encounter Date Assessment Date Assessment LastModified by Organization Details LastModified Time 06/07/2024 06/07/2024 D/w pt about her findings and further plan of care. Will do x-ray. Meds as directed. Ice pack as directed prn. Advised pt to avoid any strenuous activities/li fting-pushing until cleared. Educated pt about alarming symptoms to monitor at home and call us back or get checked in ED. F/u with PCP in 2-3 weeks as directed. [email or web address] Not available 06/07/2024 15:05:17 Plan of Treatment Reminders Order Date Submit Date Provider Last Modified By Organization Details Last Modified Time Details Appointments None recorded. Lab glycohemogl obin, total, blood 2023 024 [facility] (Lab), [address] [place], [address], 20:43:46 Referral otolaryngol ogist referral - Please call patient to schedule an appointment . Thank you. 2023 024 [email or web address] Enrique Walsh MD, [address], [place], [address], 08:40:50 Procedures None recorded. Surgeries None recorded. Imaging audiogram + tympanogram 2023 [facility], [address], [place], [address], 15:42:28 XR, cervical spine, 4 or 5 view 2023 [facility], [address], [place], [address], 14:26:52 Medication Orders Medrol (Brent) 4 mg tablets in a dose pack 2023 [facility], [address] [facility], [place], [address], 14:04:58 Mounjaro 2.5 mg/0.5 mL subcutaneou s pen injector 2023 [facility], [address] [facility], [place], [address], 09:37:21 amoxicillin 875 mg-potassiu m clavulanate 125 mg tablet [address], [address] [facility], [place], [address], 09:36:46 venlafaxine ER 37.5 mg capsule,ext ended release 24 hr 2023 [facility] [address], [address] [facility], [place], [address], 14:28:59 Ciprodex 0.3 %-0.1 % ear drops,suspe nsion 2023 [email or web address] [facility] [address]25, [address] [facility], [place], [address], 09:36:50 fluticasone propionate 50 mcg/actuati on nasal spray,suspe nsion 10/30/ 2024 10/30/2 024 [facility] [address], [address], [place], [address], 4 12:45:49 ipratropium bromide 42 mcg (0.06 %) nasal spray 2023 024 [facility] [address], [address], [place], [address], 4 16:28:49 diclofenac sodium 75 mg tablet,alexandrea yed release 2023 [facility] [address], [address], [place], [address], 15:00:25 ketorolac 60 mg/2 mL intramuscul ar solution 2023 4 Not available 17:50:46 tizanidine 2 mg tablet 2023 [facility] [address], [address] , [place], [address], 15:00:26 Patient TargetsNo targets recorded. Patient Instructions Encounter Date Encounter Id Patient Instructions Last Modified By Organization Details Last Modified Time 04/06/2024 [id number] dementia rating scale-2* INA Not available 04/06/2024 14:39:04 alcohol misuse* INA Not available 04/06/2024 14:38:47 depression screening* INA Not available 04/06/2024 14:38:38 Timed Up and Go test (TUG)* INA Not available 04/06/2024 14:36:27 multi-dimensiona l health assessment questionnaire* INA Not available 04/06/2024 14:38:56 Personalized Hea lt Plan and Screening Recommendations Advance Directives - Do you have one? Yes Advance Directives - Do we have your advance directive on file in your health record? Primary Prevention/Interven tion (prevents or decreases the chance of common diseases from occurring) Smoking Risk: Non Smoker Alcohol Misuse Screening: Negative Weight: Appropriate continue your current weight loss efforts Physical activity: Appropriate physical activity minimum of 10-20 minutes of activity that causes mild breathlessness/day Nutrition: Good Average Fall Risk (screened today): Low Intermediate Refer to attached handout Preventing Falls: After your Visit Vaccines Pneumococcal: Ordered Recommended today Recommended today, but you have declined No further needed Influenza: Ordered Recommended today Recommended today, but you have declined Chronic Disease Risks Stroke: Low Risk Intermediate Risk I have no recommendations Act bentley diagnosis, Continue current treatment plan Heart Attack: Low risk Intermediate Risk I have no recommendations Act bentley diagnosis, Continue current treatment plan Clogging of the Arteries: Low risk Intermediate Risk I have no recommendations Act bentley diagnosis, Continue current treatment plan Diabetes: Low Risk Intermediate Risk Secondary Prevention/Interven tion (detects treatable diseases before they may cause symptoms, disability, or ) Breast Cancer Screening with mammogram: Cervical/Uterine/Ov zina Cancer Screening: Osteoporosis Screening: Date Screening Last Performed: Colon Cancer Screening: Date Screening Last Performed: Eye Disease Screening: Dementia Risk: Low I have no recommendations Depression Screening: Negative [email or web address] Not available 04/06/2024 10:46:18 04/14/2024 [id number] Discussed findin gs of increased fluid in the left middle ear. She will use Ciprodex twice a day for 7 days. In addition she will use Flonase daily for management of Eustachian tube dysfunction. She will have an audiogram and an MRI of her IAC's for further evaluation. Discussed if her symptoms are present or worse after completion of medical management to contact the office for a surgical consult in discussing a ETBD with tube placement. [email or web address] Not available 04/14/2024 12:48:03 05/06/2024 [id number] this patient ary l consider Eustachian tube balloon dilatation. 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 Thank you. Referring Physician: Mamta Ramirez, Family Medicine, Encounter Date: 04/06/2024 Results Created Date Observation Date Name Description Value Unit Range Abnormal Flag Note LastModifiedBy Organization Detail LastModifiedTime 04/22/20 24 04/22/2024 MRI, inter nal audit ory canal , w/wo contr ast No observ ation record ed. [email or web address] [facility] [address] , [place], [address], 04/22/2024 14:51:48 04/22/20 24 04/22/2024 MRI, inter nal audit ory canal , w/wo contr ast No observ ation record ed. [email or web address] [address], [address], 04/27/2024 15:09:40 04/27/20 24 04/27/2024 MRI, inter nal audit ory canal , w/wo contr ast No observ ation record ed. [facility] [address] , [place], [address], 04/27/2024 17:19:36 05/03/20 24 05/03/2024 audio gram + tympa nogra m No observ ation record ed. [email or web address] [address] , [place], [address], 05/06/2024 16:16:29 06/10/20 24 06/10/2024 XR, cervi evan spine , 4 or 5 view No observ ation record ed. [address], [address], 06/18/2024 12:31:56 06/10/20 24 06/10/2024 XR, cervi eavn spine , 4 or 5 view No observ ation record ed. [address], [address], 06/18/2024 12:31:57 06/10/20 24 06/10/2024 XR, cervi evan spine , 4 or 5 view No observ ation record ed. [address], [address], 06/18/2024 12:31:57 Result Notes None recorded. Problems Name Problem SNOMED Code Status Onset Date Resolution Date Notes Provider Name and Address Organization Details Recorded Time Referred otalgia 91882646 Active Not Available [facility] 3 17:19:51 Chronic vaginitis 53158318 Active Not Available [facility] 3 17:19:51 Raynaud's disease 596962537 Active Not Available [facility] 3 17:19:51 Abdominal pain 68744739 Completed 10/10/2023 DEN Barfield [address], [place], [address] , [employer] 4 08:43:17 Chronic diarrhea 558155231 Active Not Available [facility] 3 17:19:51 Urinary symptoms 034765231 Completed 10/10/2023 DEN Barfield [address], [address], [place], [address] , [employer] 4 08:44:19 Liver mass 550723663 Active Not Available [facility] 3 17:19:51 Lipoma of lower back 533961603 Active Not Available [facility] 3 17:19:51 Acute pelvic pain 336278899 Completed 10/10/2023 DEN Barfield [address], [address], [place], [address] , [employer] 4 08:43:26 Depressiv e disorder 29681878 Active Not Available [facility] 3 17:19:52 Osteoarth ritis 883688928 Active Not Available [facility] 3 17:19:52 Hematoche randy 256840256 Active Not Available [facility] 3 17:19:52 Anxiety 20042694 Active Not Available [facility] 3 17:19:52 Upper respirato ry infection 73943470 Completed 10/10/2023 DEN Barfield [address], [address], [place], [address] , [facility] 4 08:44:43 Hyperlipi demia 89061769 Active Not Available [facility] 3 17:19:52 Urinary tract infectiou s disease 47117953 Completed 10/10/2023 DEN Barfield [address], [address], [place], [address] , [facility] 4 08:44:15 Diabetes mellitus 92670312 Active Not Available [facility] 3 17:19:52 Xiphodyni a 89515340 Active Not Available [facility] 3 17:19:52 Blood chemistry outside reference range 783696937 Active 2022 Not Available [facility] 3 17:19:51 Pain in right foot 25724903300 9107 Active 2022 Not Available [facility] 3 17:19:52 Vitamin D deficienc y 01643156 Active 2022 Not Available [facility] 3 17:19:52 Sprain of right ankle 97934018538 543659 Active 2022 Not Available [facility] 3 17:19:51 Closed fracture of fifth metatarsa l bone 20998125 Completed 202210/10/2023 DEN Barfield [address], [place], [address] , [facility] 4 08:43:41 Hypertens bentley disorder 21928861 Active 2022 Leonard Danielle RN null, [facility] 3 10:23:56 Pain in femur 534665435 Active 2023 DEN Barfield [address], [address], [place], [address] , [facility] 4 10:35:48 Pain in femur 299371134 Active 2023 DEN Barfield [address], [place], [address] , [place] [facility] 4 10:36:01 Liver enzymes level above reference range 301059286 Active 2023 DEN Barfield [address], [address], [place], [address] , [place] [facility] 4 16:45:02 Dysfuncti on of bilateral eustachia n tubes 47963590436 59248 Active 2023 DEN Barfield [address], [address], [place], [address] , [place] [facility] 4 14:16:37 Bilateral tinnitus 60048031842 02 Active 2023 DEN Barfield [address], [address], [place], [address] , [place] [facility] 4 14:28:32 Acute left otitis media 491369323 Active 2023 DEN Barfield [address], [address], [place], [address] , [place] [facility] 4 14:30:59 Asymmetri evan sensorine ural hearing loss 152299641 Active 2023 Ilsa Ham RN null, [place] [facility] 4 12:38:30 Dysfuncti on of left eustachia n tube 59535790765 [address] Active 2023 DEN Velez [address], [address], [place], [address] , [place] [facility] 4 12:44:37 Vasomotor rhinitis 9756018 Active 2023 Enrique Walsh MD [address], [address], [place], [address] , [place] [facility] 4 16:28:04 Neck pain 03434477 Active 2023 Kit Hull MD [address], [address], [place], [address] , [facility] Hers [facility] [employer] [facility] 14:56:27 Strain of neck muscle 061074253 Active 2023 Kit Hull MD [address], [address], [place], [address] , [facility] Hers [facility] [employer] [facility] 14:56:46 Problem Notes None recorded. Procedures Surgical History Date Name Laterality Status Provider Name and Address Organization Details Recorded Time 04/06/20 Medicare Wellness CPT Code, subsequent completed DEN Barfield [address], [place], [address], [facility] [facility] 04/06/2024 14:34:13 08/24/19 Medicare Wellness CPT Code, subsequent completed America Del Rosario RN [facility] [employer] [facility] 08/22/2022 11:50:05 Cataract Surgery completed Not Available [facility] 08/14/2022 08:45:06 Gallbladder Surgery completed CORAL Herbert [facility] [employer] [facility] 11/29/2022 11:47:32 tonsillectomy completed Ilsa Ham RN [facility] [employer] [facility] 04/14/2024 12:21:04 Imaging Results Imaging Date Name Status LastModified by Organiz ation Details LastModified Time 04/22/2024 MRI, internal auditory canal, w/wo contrast completed [address] [place], [address], 04/22/2024 14:51:48 04/22/2024 MRI, internal auditory canal, w/wo contrast completed [address] [facility], [place], [address], 04/27/2024 15:09:40 04/27/2024 MRI, internal auditory canal, w/wo contrast completed [address] [place], [address], 04/27/2024 17:19:36 05/03/2024 audiogram + tympanogram completed [address] [facility] [address], [place], [address], 05/06/2024 16:16:29 06/10/2024 XR, cervical spine, 4 or 5 view completed [address] [place] [address], [address], 06/18/2024 12:31:56 06/10/2024 XR, cervical spine, 4 or 5 view completed [address] [place] [address], [address], 06/18/2024 12:31:57 06/10/2024 XR, cervical spine, 4 or 5 view completed [address], [address], 06/18/2024 12:31:57 Procedure Notes None recorded. Medical Equipment None Reported. Allergies No known drug allergies Medications Name Sig Start Date Stop Date Status Note LastModified by Organization Details LastModified Time amoxicill in 500 mg capsule TAKE 2 CAPSULES BY MOUTH NOW 1 THREE TIMES DAILY UNTIL GONE 08/23 completed Not Available Not Available Not Available venlafaxi ne ER 37.5 mg capsule,e xtended release 24 hr TAKE 1 CAPSULE BY MOUTH ONCE DAILY DIRECTED FOR 90 DAYS active Not Available Not Available No t Available prednison e 10 mg tablet TAKE 1 TABLET BY MOUTH TWICE DAILY 02/02 completed Not Available Not Available Not Available atorvasta tin 20 mg tablet TAKE 1 TABLET BY MOUTH ONCE DAILY active Not Available Not Available No t Available tizanidin e 2 mg tablet Take 1 tablet every 12 hours by oral route for 30 days. active Not Available Not Available No t Available azithromy braden 250 mg tablet TAKE 2 TABLETS BY MOUTH TODAY, THEN TAKE 1 TABLET DAILY FOR 4 DAYS active Not Available Not Available No t Available glyburide 5 mg tablet Take 2 tablets by mouth twice daily active Not Available Not Available No t Available fluconazo le 150 mg tablet TAKE 1 TABLET BY MOUTH active Not Available Not Available No t Available valacyclo vir 1 gram tablet Take 2 tablets every 12 hours by oral route for 1 day. active Not Available Not Available No t Available hydrocodo ne 5 mg-acetam inophen 325 mg tablet 08/07 completed Not Available Not Available Not Available vitamin E54-omanv in B1 1,000 mcg-100 mg/mL injection solution Take by injectio n route. 04/[address] Mcmullen's office Not Available Not Available Not Available flurbipro fen 0.03 % eye drops INSTILL 1 DROP INTO AFFECTED EYE THREE TIMES DAILY STARTING AFTER SURGERY AND FOR 21 DAYS active Not Available Not Available No t Available ondansetr on HCl 8 mg tablet Take 1 tablet every 8 hours by oral route. 08/07 completed Not Available Not Available Not Available meloxicam 15 mg tablet 08/07 completed Not Available Not Available Not Available phenazopy ridine 200 mg tablet active Not Available Not Available Not Available doxycycli ne hyclate 50 mg capsule TAKE 1 CAPSULE BY MOUTH ONCE DAILY WITH MEALS active Not Available Not Available No t Available metformin 850 mg tablet TAKE 2 TABLETS BY MOUTH IN THE MORNING 1 IN THE EVENING active Not Available Not Available No t Available venlafaxi ne ER 150 mg capsule,e xtended release 24 hr Take 1 capsule every day by oral route. active Not Available Not Available No t Available acetamino phen 300 mg-codein e 30 mg tablet 01/04 completed Not Available Not Available Not Available levofloxa braden 250 mg tablet Take 1 tablet every day by oral route for 5 days. 08/23 completed Not Available Not Available Not Available ciproflox acin 500 mg tablet TAKE 1 TABLET BY MOUTH TWICE DAILY 08/23 completed Not Available Not Available Not Available sulfameth oxazole 800 mg-trimet hoprim 160 mg tablet TAKE 1 TABLET BY MOUTH TWICE DAILY. WHEN HAVING SYMPTOMS OF A URINARY TRACT INFECTIO N. 02/28 completed Not Available Not Available Not Available Macrobid 100 mg capsule Take 1 capsule every 12 hours by oral route. 08/23 completed Not Available Not Available Not Available nystatin- triamcino lone 100,000 unit/gram -0.1 % topical ointment APPLY TO THE AFFECTED AREA(S) BY TOPICAL ROUTE 2 TIMES PER DAY active Not Available Not Available No t Available Celebrex 200 mg capsule active Not Available Not Available Not Available alprazola m 0.5 mg tablet TAKE 1/2 TO 1 (ONE-AIME F TO ONE) TABLET BY MOUTH THREE TIMES DAILY NEEDED 12/27 completed Not Available Not Available Not Available prednisol one acetate 1 % eye drops,courtney pension INSTILL 1 DROP INTO BOTH EYES THREE TIMES A DAY FOR THE FIRST WEEK. THEN INSTILL 1 DROP INTO BOTH EYES TWICE A DAY FOR THE SECOND WEEK, THEN INSTILL 1 DROP INTO BOTH EYES ONCE DAILY FOR THE THIRD WEEK 08/23 completed Not Available Not Available Not Available doxycycli ne monohydra te 50 mg tablet TAKE 1 TABLET BY MOUTH ONCE DAILY 05/05 completed Not Available Not Available Not Available dexametha sone 1 mg tablet 12/27 completed Not Available Not Available Not Available benzonata te 100 mg capsule TAKE ONE CAPSULE 3 TIMES A DAY active Not Available Not Available No t Available hydrocodo ne 7.5 mg-acetam inophen 325 mg tablet active Not Available Not Available Not Available erythromy braden 5 mg/gram (0.5 %) eye ointment APPLY AT BEDTIME INTO BOTH EYES 05/05 completed Not Available Not Available Not Available venlafaxi ne 37.5 mg tablet 1 po daily active Not Available Not Available No t Available neomycin- polymyxin -dexameth 3.5 mg/mL-10, 000 unit/mL-0 .1% eye drops INSTILL 1 DROP INTO EACH EYE THREE TIMES DAILY SHAKE WELL BEFORE USE 08/23 completed Not Available Not Available Not Available clotrimaz ole-betam ethasone 1 %-0.05 % topical cream APPLY TO AFFECTED AREA(S) TWICE DAILY X 2 WEEKS active Not Available Not Available No t Available lisinopri l 10 mg tablet TAKE 1 TABLET BY MOUTH ONCE DAILY 03/29 completed Not Available Not Available Not Available fluoromet holone 0.1 % eye drops,courtney pension INSTILL 1 DROP INTO RIGHT EYE TWICE DAILY FOR 2 WEEKS 12/13 completed Not Available Not Available Not Available polymyxin B sulfate 10,000 unit-trim ethoprim 1 mg/mL eye drops INSTILL 1 DROP INTO AFFECTED EYE 4 TIMES DAILY STARTING THE DAY BEFORE SURGERY FOR 8 DAYS 12/13 completed Not Available Not Available Not Available nystatin- triamcino lone 100,000 unit/g-0. 1 % topical cream APPLY TO THE AFFECTED AREA(S) BY TOPICAL ROUTE 2 TIMES PER DAY IN THEMORNI NG AND EVENING active Not Available Not Available No t Available diclofena c sodium 75 mg tablet,de layed release Take 1 tablet every 12 hours by oral route as needed for 30 days. active Not Available Not Available No t Available hydrocodo ne 5 mg-acetam inophen 500 mg tablet active Not Available Not Available Not Available Accu-Chek Compact Test strips 02/28 completed Not Available Not Available Not Available lisinopri l 5 mg tablet TAKE 1 TABLET BY MOUTH ONCE DAILY active Not Available Not Available No t Available mupirocin 2 % topical ointment APPLY A SMALL AMOUNT TO THE AFFECTED AREA BY TOPICAL ROUTE THREE TIMES PER DAILY 12/13 completed Not Available Not Available Not Available metoprolo l succinate ER 25 mg tablet,ex tended release 24 hr TAKE 1 TABLET BY MOUTH ONCE DAILY 08/23 completed Not Available Not Available Not Available Cheratuss in AC 10 mg-100 mg/5 mL oral liquid active Not Available Not Available Not Available levofloxa braden 500 mg tablet TAKE 1 TABLET BY MOUTH DAILY active Not Available Not Available No t Available estradiol 0.01% (0.1 mg/gram) vaginal cream USE A FINGERTI P AMOUNT (1 GRAM) IN VAGINA 2 NIGHTS PER WEEK 08/23 completed Not Available Not Available Not Available methylpre dnisolone 4 mg tablets in a dose pack TAKE BY MOUTH DIRECTED ON INSIDE OF PACKAGE 04/06 completed Not Available Not Available Not Available ipratropi um bromide 42 mcg (0.06 %) nasal spray [place] 2 sprays 3 times a day by intranas al route. active Not Available Not Available No t Available ketorolac 60 mg/2 mL intramusc ular solution Inject 2 mL as needed by intramus cular route for 1 day. 2023 active pt millie well Not Available Not Available Not Available fluticaso ne propionat e 50 mcg/actua tion nasal spray,courtney pension USE 1 SPRAY(S) IN EACH NOSTRIL ONCE DAILY FOR 10 DAYS active Not Available Not Available No t Available metoclopr amide 10 mg tablet 08/07 completed Not Available Not Available Not Available amoxicill in 875 mg-potass ium clavulana te 125 mg tablet TAKE 1 TABLET BY MOUTH EVERY 12 HOURS 05/05 completed Not Available Not Available Not Available tobramyci n 0.3 %-dexamet hasone 0.1 % eye drops,courtney pension 11/30 completed Not Available Not Available Not Available oxycodone 5 mg tablet TAKE 1/2 (ONE-AIME F) TABLET BY MOUTH EVERY 4 HOURS NEEDED 02/28 completed Not Available Not Available Not Available neomycin 3.5 mg/g-poly myxin B 10,000 unit/g-de xameth 0.1 % eye oint 12/13 completed Not Available Not Available Not Available enoxapari n 40 mg/0.4 mL subcutane ous syringe 08/07 completed Not Available Not Available Not Available Pneumovax -23 25 mcg/0.5 mL injection syringe PHARMACI ST ADMINIST ERED IMMUNIZA TION ADMINIST ERED AT TIME OF DISPENSI NG 12/13 completed Not Available Not Available Not Available ciproflox acin 0.3 %-dexamet hasone 0.1 % ear drops,courtney pension INSTILL 4 DROPS INTO LEFT EAR TWICE DAILY FOR 7 DAYS 05/05 completed Not Available Not Available Not Available calcium take 1200mg 1 per day active Not Available Not Available No t Available Lipitor 08/07 completed Not Available Not Available Not Available [place] 3 2013 active Not Available Not Available Not Avai lable Calcium 500 10/09 completed Not Available Not Available Not Available OneTouch Ultra2 Meter kit USE DIRECTED 02/28 completed Not Available Not Available Not Available Januvia 100 mg tablet Take 1 tablet every day by oral route. 2013 active Not Available Not Available Not Avai lable venlafaxi ne ER 75 mg tablet,ex tended release 24 hr one po daily 09/22 completed Not Available Not Available Not Available OneTouch Delica Lancets 33 gauge USE TO TEST BLOOD SUGARS 3 TIMES A DAY 02/28 completed Not Available Not Available Not Available Tradjenta 2015 active samples Not Available Not Available Not Avai lable Accu-Chek Viky Plus test strips USE STRIP TO TEST BLOOD SUGARS TWICE DAILY 02/28 completed Not Available Not Available Not Available Accu-Chek Viky Plus Meter USE TO TEST BLOOD SUGARS TWICE DAILY 02/28 completed Not Available Not Available Not Available Invokana 300 mg tablet TAKE 1 TABLET BY MOUTH EVERY DAY active Not Available Not Available No t Available Farxiga 10 mg tablet 1 po daily active Not Available Not Available No t Available Farxiga 5 mg tablet 1 po daily active Not Available Not Available No t Available Jardiance 10 mg tablet TAKE 1 TABLET BY MOUTH ONCE DAILY 05/24 completed Not Available Not Available Not Available Jardiance 25 mg tablet Take 1 tablet every day by oral route. active Not Available Not Available No t Available Trulicity 1.5 mg/0.5 mL subcutane ous pen injector INJECT THE CONTENTS OF 2 PENS SUBCUTAN EOUSLY ONCE A WEEK active Not Available Not Available No t Available Pazeo 0.7 % eye drops 11/30 completed Not Available Not Available Not Available Shingrix (PF) 50 mcg/0.5 mL intramusc ular suspensio n, kit 06/03 completed Not Available Not Available Not Available Ozempic 0.25 mg or 0.5 mg (2 mg/1.5 mL) subcutane ous pen injector inject 0.25 mg weekly x 4 weeks then 0.5 mg thereaft er 12/27 completed Not Available Not Available Not Available Steglatro 15 mg tablet Take 1 tablet every day by oral route. active Not Available Not Available No t Available Lotemax SM 0.38 % eye gel drops INSTILL 1 DROP INTO AFFECTED EYE 3 TIMES DAILY STARTING AFTER SURGERY AND FOR 21 DAYS 12/13 completed Not Available Not Available Not Available Trulicity 3 mg/0.5 mL subcutane ous pen injector INJECT 3 MG SUBCUTAN EOUSLY ONCE A WEEK 02/02 completed Not Available Not Available Not Available Mounjaro 7.5 mg/0.5 mL subcutane ous pen injector INJECT 7.5MG SUBCUTAN EOUSLY EVERY 7 DAYS active Not Available Not Available No t Available Mounjaro 5 mg/0.5 mL subcutane ous pen injector INJECT 5MG SUBCUTAN EOUSLY EVERY 7 DAYS 04/06 completed Not Available Not Available Not Available Mounjaro 2.5 mg/0.5 mL subcutane ous pen injector INJECT 2.5 MG SUBCUTAN EOUSLY ONCE A WEEK DIRECTED WITH 5 MG TO EQUAL 7.5 MG 05/05 completed Not Available Not Available Not Available Vitals Date Recorded Body height Body mass index (BMI) Body weight Body temperature Heart rate Respiratory rate Oxygen saturation Oxygen saturation in Arterial blood by Pulse oximetry Systolic blood pressure Diastolic blood pressure Provider Name and Address Organization Details Last Updated DateTime 4 162.56 cm 20.2 kg/m2 54625.7 6 g 97.4 [degF] 99 /min 20 /min 99 % 99 % 124 mm[Hg] 68 mm[Hg] Shyann Funk RN [facility] [employer] [facility] 14:03:34 Date Recorded Body height Body mass index (BMI) Body weight Body temperature Heart rate Respiratory rate Oxygen saturation Oxygen saturation in Arterial blood by Pulse oximetry Systolic blood pressure Diastolic blood pressure Provider Name and Address Organization Details Last Updated DateTime 163.2 cm 19.8 kg/m2 28543.1 6 g 96.8 [degF] 64 /min 20 /min 97 % 97 % 130 mm[Hg] 70 mm[Hg] Shyann Funk RN [facility] [employer] [facility] 14:08:27 Date Recorded Body height Body mass index (BMI) Body weight Body temperature Provider Name and Address Organization Details Last Updated DateTime 04/14/2024 163.2 cm 19.4 kg/m2 96598.53 g 97.7 [degF] Ilsa Ham RN [facility] [employer] [facility] 04/14/2024 12:23:05 Date Recorded Body height Body mass index (BMI) Body weight Body temperature Provider Name and Address Organization Details Last Updated DateTime 05/06/2024 163.2 cm 19.9 kg/m2 77511.31 g 97.7 [degF] Ilsa Ham RN [facility] [employer] [facility] 05/06/2024 15:51:32 Date Recorded Body height Body mass index (BMI) Body weight Body temperature Oxygen saturation Oxygen saturation in Arterial blood by Pulse oximetry Heart rate Systolic blood pressure Diastolic blood pressure Provider Name and Address Organization Details Last Updated DateTime 163.2 cm 19.7 kg/m2 87131.9 2 g 97.3 [degF] 96 % 96 % 98 /min 118 mm[Hg] 72 mm[Hg] Henna Buckley RN [facility] [employer] 14:52:13 Social History Question Answer Notes LastModified by Organizat ion Details LastModified Time Tobacco Smoking Status Former Smoker Mariela Casiano germaine [email or web address] 11/29/2022 11:38:33 Do You Have An Advance Directive? Yes Information not available 08/22/2022 What Is Your Level Of Alcohol Consumption? None [id number] Information not available 08/14/2022 Are You Blind Or Do You Have Difficulty Seeing? Yes Says She Sees Bugs In Her Eyes Information not available 02/03/2024 Is Blood Transfusion Acceptable In An Emergency? No Information not available 10/10/2023 What Is Your Code Status? DNR Information not available 10/10/2023 In The 14 Days Before Symptom Onset, Have You Had Close Contact With A Laboratory-confi rmed COVID-19 While That Case Was Ill? No Information not available 10/10/2023 In The 14 Days Before Symptom Onset, Have You Had Close Contact With A Person Who Is Under Investigation For COVID-19 While That Person Was Ill? No Information not available 10/10/2023 Are You Currently Employed? No Information not available 10/10/2023 Are You Deaf Or Do You Have Serious Difficulty Hearing? Yes Ringing Information not available 02/03/2024 What Type Of Diet Are You Following? REGULAR Information not available 08/22/2022 Have There Been Any Changes To Your Family Or Social Situation? No [email or web address] Information not available 11/29/2022 Do You Use Insect Repellent Routinely? No [email or web address] Information not available 11/29/2022 Where Do You Live? [facility] [email or web address] Information not available 11/29/2022 Advance Directive- Providers Has Reviewed Directive And Consents To Follow Them (insert Provider Name With Any Objectives In Notes Field) Yes Information not available 10/10/2023 Presence Of Domestic Violence No Information not available 08/22/2022 Guns Present In The Home? No Information not available 10/10/2023 Are You Able To Care For Yourself? Yes Information not available 08/22/2022 Are You Blind Or Do Yo Have Difficulty Seeing? No Information not available 08/22/2022 Are You Deaf Or Do You Have Serious Difficulty Hearing? No Information not available 08/22/2022 General Stress Level? Moderate Information not available 08/22/2022 Live Alone Of With Others? With Others Information not available 08/22/2022 Do You Have A Medical Power Of Qa Software Tester? No Information not available 10/10/2023 What Was The Date Of Your Most Recent Tobacco Screening? 08/22/2022 [email or web address] Information not available 11/29/2022 How Many Children Do You Have? 2 Information not available 04/06/2024 Do You Have Any Pets? Yes [email or web address] Information not available 11/29/2022 What Is Your Relationship Status? Information not available 08/22/2022 Do You Use Your Seat Belt Or Car Seat Routinely? Yes Information not available 10/10/2023 Do You Have Smoke And Carbon Monoxide Detectors In Your Home? Yes [email or web address] Information not available 11/29/2022 Are You Passively Exposed To Smoke? No Information not available 10/10/2023 Are There Any Smokers In Your House? No Information not available 10/10/2023 How Much Tobacco Do You Smoke? 1 [facility] [id number] Information not available 08/14/2022 Do You Participate In Social Media? Yes Information not available 10/10/2023 Do You Feel Stressed (tense, Restless, Nervous, Or Anxious, Or Unable To Sleep At Night)? [id number] [email or web address] Information not available 11/29/2022 Do You Use Sunscreen Routinely? No [email or web address] Information not available 11/29/2022 Has Tobacco Cessation Counseling Been Provided? No [email or web address] Information not available 11/29/2022 How Many Years Have You Smoked Tobacco? 30 [email or web address] Information not available 11/29/2022 Have You Recently Traveled Abroad? No Information not available 10/10/2023 Do You Have Any Dietary Restrictions? No [email or web address] Information not available 11/29/2022 Sex: Unknown Functional Status Question Answer Note LastModified by Organizat ion Details LastModified Time Do you have difficulty walking or climbing stairs? No [email or web address] Information not available 11/29/2022 Do you have transportation difficulties? No [email or web address] Information not available 11/29/2022 Are you able to walk? YESWOREST [email or web address] Information not available 11/29/2022 Do you have difficulty doing errands alone? No [email or web address] Information not available 11/29/2022 Are you able to care for yourself? Yes [email or web address] Information not available 11/29/2022 Do you have difficulty dressing or bathing? No Information not available 11/29/2022 What is your exercise level? None Information not available 08/22/2022 Mental Status Question Answer Note LastModified by Organization D etails LastModified Time Do you have difficulty concentrating, remembering or making decisions? Yes Information no t available 02/03/2024 Family History Relationship Description Onset Age of this Age Resolved Age Notes LastModified by Organization Details LastModified Time Maternal Grandmother Diabetes mellitus [id number] Not available 08/14/2022 08:45:06 Mother Diabetes mellitus [id number] Not available 08/14/2022 08:45:07 Daughter Myringotomy and insertion of tympanic ventilation tube [email or web address] Not available 2023 12:20:50 Medical History Condition Response DIABETES, TYPE Y EAR OR HEARING PROBLEMS Y HYPERTENSION Y HIGH CHOLESTEROL / HYPERLIPIDEMIA Y Gynecological History Statement/Question Response If Post Menopausal, Age at Menopause Date of Last Pap Smear Date of Last Colonoscopy Most Recent Mammogram Most Recent Bone Density Obstetrics History GPAL:G 0 P 0 0 0 0 Immunizations Vaccine Type Date Status Note Provider Felipe medeiros and Address Organization Details Recorded Time zoster recombinant 9 completed DEN Barfield [address] [employer], [place], [address], [facility] [employer] [facility] 10/10/2023 08:45:44 zoster recombinant 9 completed DEN Barfield [address], [address], [place], [address], [facility] [employer] 10/10/2023 08:45:44 COVID-19, mRNA, LNP-S, PF, 30 mcg/0.3 mL dose 1 completed DEN Barfield [address], [address], [place], [address], [facility] [employer] [facility] 10/10/2023 08:45:44 COVID-19, mRNA, LNP-S, PF, 30 mcg/0.3 mL dose 1 completed DEN Barfield [address], [address], [place], [address], [facility] [employer] [facility] 10/10/2023 08:45:44 COVID-19, mRNA, LNP-S, PF, 30 mcg/0.3 mL dose 0 completed DEN Barfield [address], [address], [place], [address], [facility] [employer] [facility] 10/10/2023 08:45:44 pneumococcal polysaccharide PPV23 0 completed DEN Barfield [address], [address], [place], [address], [facility] [employer] [facility] 10/10/2023 08:45:44 Pneumococcal conjugate PCV 13 9 completed DEN Barfield [address], [address], [place], [address], [facility] [employer] [facility] 10/10/2023 08:45:44 Influenza, split virus, trivalent, preservative 2 completed DEN Barfield [address], [address], [place], [address], [facility] [employer] [facility] 10/10/2023 08:45:44 Influenza, split virus, trivalent, preservative 4 completed Shyann Funk RN [facility] [employer] [facility] 10/10/2023 10:11:46 SARS-COV-2 (COVID-19) vaccine, UNSPECIFIED 1 completed Not Available [facility] 03/15/2023 17:19:52 SARS-COV-2 (COVID-19) vaccine, UNSPECIFIED 1 completed DEN Barfield [address], [place], [address], [facility] [employer] [facility] 10/10/2023 08:45:44 Past Encounters Encounter ID Performer Location Encounter Start Date Encounter Closed Date Diagnosis/Indication Diagnosis SNOMED-CT Code Diagnosis ICD10 Code Diagnosis Note [id number] [facility] [place] [address] [place] [address] 12/13/2020 00:00:00 12/13/2020 14:55:07 [id number] [facility] [place] [address] [place] [address] 01/04/2021 00:00:00 01/05/2021 06:01:49 [id number] [facility] [place] [address] [place] [address] 03/29/2021 00:00:00 03/30/2021 06:54:03 [id number] [facility] [place] [address] [place] [address] 04/09/2021 00:00:00 04/09/2021 14:33:41 [id number] [facility] [place] [address] [place] [address] 07/17/2021 00:00:00 07/17/2021 21:28:41 [id number] [facility] [place] [address] [place] [address] 05/02/2022 00:00:00 05/02/2022 19:51:58 [id number] Leola Lentz MD [facility] [place] [address] [place] [address] 08/23/2022 10:43:14 08/23/2022 11:38:25 Adult health examination 765307471 Z00.00 Screening for disorder 670978005 Z13.9 Type 2 elkin betes mellitus without complication 245275520 E11.9 Hyperlipidemia 38485007 E78.5 Screening for malignant neoplasm of breast 414582059 Z12.39 Unexplaine d weight loss 597774281 R63.4 [id number] Gallito Matute MD [facility] [place] [address] [place] [address] 11/29/2022 11:36:31 12/02/2022 11:11:05 Pain in right foot 9852399128 67203 M79.671 Pain of ri ght ankle joint 1487239201 9222260 M25.571 Vitamin D deficiency 347 54611 E55.9 [id number] TAWANNA Pedroza [facility] [place] [address] [place] [address] 12/27/2022 10:15:49 12/27/2022 14:08:39 Sprain of right ankle 2560017456 6940842 S93.401D Closed fra cture of fifth metatarsal bone 54336018 S92.354D [id number] Gallito Matute MD [facility] [place] [address] [place] [address] 01/31/2023 09:55:22 01/31/2023 10:42:04 Pain in right foot 6803274167 68819 M79.114 [id number] Gallito Matute MD [facility] [place] [address] [place] [address] 02/28/2023 10:42:38 03/03/2023 09:29:06 Pain in right foot 8657435001 01871 M79.088 [id number] [facility] [place] [address] [place] [address] 03/31/2023 14:42:14 03/31/2023 15:31:56 Closed fracture of fifth metatarsal bone 22047942 S92.354D [id number] TAWANNA Dempsey [facility] [address] [facility] [place] [address] 09/16/2023 11:57:48 09/16/2023 12:29:43 Diabetes mellitus 81304676 E11.9 Type 2 elkin betes mellitus without complication 884115442 E11.9 Hyperlipidemia 82240620 E78.5 Vitamin D deficiency 347 65707 E55.9 Anxiety 85095851 F41.9 Depressive disorder 3548 9007 F32.A Hypertensive disorder 38 553871 I10 Osteoarthritis 291178622 M19.90 [id number] Mamta Ramirez [address] [address] 10/10/2023 09:56:02 10/10/2023 10:59:50 Pain in femur 399305655 M79.659 Diabetes mellitus 136211 09 E11.9 [id number] Mamta Ramirez [address] [address] 11/11/2023 15:05:26 11/11/2023 16:48:09 [id number] Mamta Ramirez [address] [address] 02/03/2024 13:51:36 02/03/2024 14:29:59 Diabetes mellitus 36184050 E11.9 Dysfunctio n of bilateral eustachian tubes 4740268187 660374 H69.93 [id number] Mamta Ramirez [address] [address] 04/06/2024 13:58:26 04/06/2024 15:05:29 Adult health examination 465270970 Z00.00 Screening for disorder 919998217 Z13.9 Depressive disorder 3548 9007 F32.A Bilateral tinnitus 30417 33105 102 H93.13 Acute left otitis media 812780142 H66.92 [id number] Ilsa DEN Lerma [facility] [place] [address] [place] [address] 04/14/2024 12:13:37 04/14/2024 12:48:41 Asymmetrical sensorineural hearing loss 663998559 H90.5 Dysfunctio n of left eustachian tube 7381975351 944204 H69.92 [id number] Enrique Walsh MD [facility] [place] [address] [place] [address] 05/06/2024 15:32:49 05/12/2024 10:18:45 Dysfunction of left eustachian tube 6050628346 998259 H69.92 Vasomotor rhinitis 39941 03 J30.0 [id number] Kit Hull MD [facility] [address] 06/07/2024 14:41:22 06/07/2024 15:07:40 Neck pain 95125379 M54.2 Strain of neck muscle 36 1164868 S16.1XXA Health Concerns Section Related Observation LastModified by Organization Detai ls LastModified Time None Recorded Concern Status LastModified by Organization Details LastModified Time None Recorded Advance Directives Directive Y: Payers Encounter Date Sequence Insurance Name Policy Number Policy Nelson Covered Member ID Nelson Member ID Guarantor Name 02/03/2024 1 [place] Margie D Lisa [id number] Margie D Lisa 02/03/2024 2 [employer] (MEDICARE SUPPLEMENT) Margie D Lisa [id number] Margie D Lisa 04/06/2024 1 [place] Margie D Lisa [id number] Margie D Lisa 04/06/2024 2 [employer] (MEDICARE SUPPLEMENT) Margie D Lisa [id number] Margie D Lisa 04/14/2024 1 [place] Margie D Lisa [id number] 1 Margie D Lisa 04/14/2024 2 [employer] (MEDICARE SUPPLEMENT) Margie D Lisa [id number] Margie Gonzalez 05/06/2024 1 [place] Margie Gonzalez [id number] 1 Margie Gonzalez 05/06/2024 2 [employer] (MEDICARE SUPPLEMENT) Margie Gonzalez [id number] Margie Gonzalez 06/07/2024 1 [place] Margie Gonzalez [id number] 1 Margie Gonzalez 06/07/2024 2 [employer] (MEDICARE SUPPLEMENT) Margie Gonzalez [id number] Margie Gonzalez Notes Date Note Type Note Provider Name and Address Organization Details Recorded Time 02/03/2024 text/html Margie Gonzalez is a 73 year old female here today for a sick visit. She states she has an ear ache, head pressure, visual floaters, raspy voice, shaky, and cold. This started about 2 weeks ago. She has concerns that her blood sugars are getting high. [facility] has had a similar experience in the past and it was due to blood sugars. Has had a hard time getting Mounjaro 7.5 Mamta Ramirez, NURSING HOME MANAGER [address], [address], [place], [address], [facility] 02/03/2024 14:26:00 04/06/2024 text/html Margie Gonzalez is a 73 year old female patient here today for her Medicare Annual Wellness Visit She states she is doing well. Does not want to repeat annual labs today, last done in September 2023. She has concerns with tinnitus and ear pain. She states the tinnitus is causing significant hindrance to her daily life. This is constant. Concerns with depression today. States she has felt this way for 3-4 years. States she previously venlafaxine but is unsure if that worked well. Patient states that since her daughter passed in 2011 she has had a feeling of wanting to be , but no plan or harming herself. Her past medical history is significant for hyperlipidemia. Her last lipid panel (09/18/2023) was WNLs. She is taking atorvostatin 20 mg PO HS. She admits to muscle cramping, but states this started before atorvostatin. She has a history of type II diabetes mellitus. Her last A1C (02/03/2024) was 6.2. She is currently taking glyburide 10 mg PO BID, Jardiance 25 mg PO daily, Metformin 1700 mg PO am and 850 mg PO HS, and Trulicity 3 mg SQ weekly. She previously took Mounjaro and prefers this. We will try to get if available. She denies GI symptoms. She has a history of hypertension. Her BP on arrival is 130/70. She does take her BP readings at home. It runs well at home. She is currently taking lisinopril 5 mg PO daily. She has postmenopausal osteoporosis. She is taking calcium 500 mg PO daily. She fractured her left femur in 2017. She is taking Prolia Q 6 months. This is managed by Dr. Mcmullen. She takes doxycyline 50 mg PO daily for blurred vision. Flu shot: declinesCOVID vaccines: 05/2020, 06/2020, 03/2021, 05/2021TDAP: unsure, believes she is up to dateSingles: 01/2019, 04/2019Pnuemonia: PCV 12 (08/2018), PPV23 (01/2020)Mammogram: does not want to do anymore.DEXA: 02/27/2023, recommended 2 year follow upColonoscopy: clean 2021, does not want to do anymore DEN Barfield [address], [address], [place], [address], [place] [facility] 04/06/2024 14:38:22 04/14/2024 text/html This patient has a past medical history significant for diabetes, vitamin-D deficiency, HLD, depression, Raynaud's disease, and OA. she presents to the office with a complaint of tinnitus that she has had forever. She states approximately greater than 5 years she has had the tinnitus present in the left ear. She also reports feelings of left ear pressure, pain, and feeling as if the ear is clogged. as of late, she reports that her tinnitus has become more prominent. She also reports feeling off balance at times. Her PCP had placed her on amoxicillin about 2 weeks ago which she states did not help. She does use the vagal maneuver and is able to pop her ear some. She states that the ringing in the ear so loud that this is also causing difficulty sleeping. She has noticed significant hearing loss to the affected side. She denies any trauma and or infections preceding the tinnitus. DEN Velez [address] [address], [place], [address], [employer] [facility] 04/14/2024 12:48:07 05/06/2024 text/html Thvoled.Tn and c a hear her heartbeat frequently. he left ear is the 1 that is invi she does have pain with landngai bilateral hgh-frequency loss as well. The ptient does report tinnitusn cofirmed on her audiogram. There isysfunctiond left Eustachian tube patient maryravinder Enrique Walsh MD [address] [address], [place], [address], [facility] [employer] 05/06/2024 16:29:22 06/07/2024 text/html ACV: C/o central and rt side of posterior neck area pain for last 2 weeks. Pt says she did some house work and lifted few boxes 2 weeks ago. Denies any recent fall/trauma, no injury in the past. No other area pain. Kit Hull MD [address] [address], [place], [address], [employer] [facility] [employer] [facility] 06/07/2024 15:06:02 OBGyn Episode No OBEpisode recorded.
--- OUTSIDE RECORDS SUMMARY | 2024-07-14 16:52 | XMS_ITS | Clinical Summary ---
Author Organization [facility] [address] Address [address] [place] [address] Care Team Providers Care Sales Team Leader Name Role Phone Prince Morse MD Unavailable [phone] Leola Lentz MD Primary Care Provider [phone] Allergies No known active allergies Medications glyBURIDE [...] PATIENT IS TAKING OTC CITRACAL Activ e ysika-8-ael-ep a-dpa-fish oil 1,050-1,200 mg capsule 1 capsule [...] 14 Active ubidecarenone- omega 3-vit E (Co V-69-Ffquygv E-Fish Oil) 25-150-200 mg-mg-unit capsule Co K-12-Gvcjrzk E-Fish Oil 25-150-200 mg-mg-unit capsule 12/20/19 21 [...] but we will rule out primary aldosteronism, Houston's, androgen excess, and pheochromocytoma with the appropriate [...] 12/19/2020 Palpitations 12/19/2020 Ventricular premature beats 12/19/2020 Surgical History Surgery Date Site/Laterality Comments CHOLECYSTECTOMY Medical History Medical History Date Comments Type 2 diabetes mellitus (HCC) GERD (gastroesophageal reflux disease) Family History Medical History Relation Name Comments Diabetes Mother Relation Name Status Comments Mother Social History Tobacco Use Types Packs/Day Years Used Date Smoking Tobacco: Former Cigarettes Q uit: 2010 Smokeless Tobacco: Never Personal Safety Answer Date Recorded Getting School Help Needed Not on file 07/09 Comments Unknown Sex and Gender Information Value Date Recorded Sex Assigned at Not on file Legal Sex Female 7:05 PM FRONT MAN Gender Identity Not on file Sexual Orientation Not on file Obstetrics History Last Filed Vital Signs Vital Sign Reading Time Taken Comments Blood Pressure 145/81 08/05/2023 9:30 AM FRONT MAN Pulse 96 08/05/2023 9:30 AM FRONT MAN Temperature 36.3 ??C (97.4 ??F) 08/05/2023 9:30 AM CS T Respiratory Rate 16 08/05/2023 9:30 AM FRONT MAN Oxygen Saturation 98% 08/05/2023 9:30 AM FRONT MAN Inhaled Oxygen Concentration - - Weight 55 kg (121 lb 3.2 oz) 08/05/2023 9:30 AM FRONT MAN Height 162.6 cm (5' 4 ) 08/05/2023 9:30 AM FRONT MAN Body Mass Index 20.8 08/05/2023 9:30 AM FRONT MAN Plan of Treatment Health Maintenance Due Date Last Done Comments Albumin Creatinine Ratio, Urine 1951 Breast Cancer Screening-Mammogram 1951 Colon Cancer Screening-Colonoscopy 1951 Depression Screening 1951 Fall Risk Assessment 1951 Hemoglobin A1C 1951 Hepatitis C Screening 1951 Osteoporosis Screening-Bone Density Scan 1951 Dilated Eye Exam 1951 Foot Exam 1951 Lipid Panel 1951 DTaP/Tdap/Td Vaccine (1 - Tdap) 1962 Hepatitis B Screening 1969 Well Visit 65+ 2016 eGFR 01/22/2022 01/22/2021 Influenza Vaccine (#1) 2024 07/13/2013, 2011 Zoster Vaccine Completed 04/17/2019, 01/30/2019 Pneumococcal vaccine 65+ Completed 01/19/2020, 03/02/2019 Procedures Procedure Name Priority Date/Time Associated Diagnosis [...] PM CDT Performed at: ??01 - [facility] [address] ??[id number] Touch Up Painter Hand: Daniel Horowitz PhD, Phone: ??[phone] Prince Morse MD LAB BLOOD ORDERABLES Fi nal Result [facility] - 01 from Last 3 Months or Most Recently Relevant to Health Maintenance Insurance MEDICARE AETNA SENIOR SUPPLEMENT MEDICARE AET SENIOR SUPPLEMENT MEDICARE AETNA SENIOR SUPPLEMENT AETNA MEDICARE AETNA SENIOR SUPPLEMENT Care Teams Sales Team Leader Relationship Specialty Start Date End Date Leola Lentz MD [facility] [place] [address] PCP - General Family Medicine 01/22/21 Prince Morse MD [address] [facility] [address] [place] [address] Consulting Physician Endocrinology Diabetes & Metabolism 01/17/21
--- OUTSIDE RECORDS SUMMARY | 2024-07-14 16:52 | XMS_ITS | Clinical Summary ---
Author Organization [facility] Jose Bolandcristian Address [address] [place] [address] Care Team Providers Care Roller Mill Operator Name Role Phone Leola Lentz MD Primary Care Provider [phone] Allergies No known active allergies Medications glyBURIDE (DIABETA) 5 mg tablet glyburide 5 mg tablet 1 Active metFORMIN (GLUCOPHAGE) 850 mg tablet TAKE 2 TABLETS BY MOUTH ONCE DAILY IN THE MORNING AND 1 IN THE EVENING 3 Active Jardiance 25 mg tablet Take 25 mg by mouth daily. 3 Active lisinopriL (PRINIVIL) 5 mg tablet Take 5 mg by mouth daily. 3 Active doxycycline monohydrate 50 mg Tablet 3 Active atorvastatin (LIPITOR) 20 mg tablet Take 20 mg by mouth daily. 1 Active Ubidecarenone-O delicia 3-Vit E (Co G-20-Fsrlygh E-Fish Oil) 25-150-200 mg-mg-unit Capsule Co N-09-Omyrcix E-Fish Oil 25-150-200 mg-mg-unit capsule 1 Active tirzepatide (Mounjaro) 7.5 mg/0.5 mL Pen Injector Inject by subcutaneous injection. Active Active Problems No known active problems Encounters Date Type Department Care Team Description 07/08/2024 External Device Data STL ABSTRACTION Provider, Abstract 07/05/2024 Orders Only [facility] Oncology and Hematology - [place] [address] [place] [address] Ramiro Mcmullen MD Chronic anemia 06/21/2024 Orders Only [facility] - [place] [address] [place] [id number] Ramiro Mcmullen MD Chronic anemia 06/07/2024 Orders Only [facility] Hematology - [place] [address] [place] [id number] Ramiro Mcmullen MD Chronic anemia 05/24/2024 Orders Only [facility] Hematology - [place] [address] [place] [id number] Ramiro Mcmullen MD Chronic anemia 05/17/2024 Orders Only [facility] Hematology - [place] [address] [place] [id number] Ramiro Mcmullen MD 05/11/2024 Orders Only [facility] On[facility] and Hematology - [place] [place] [id number] Ramiro Mcmullen MD Chronic anemia (Primary Dx) 04/20/2024 External Device Data STL ABSTRACTION Provider, Abstract from Last 3 Months Family History Medical History Relation Name Comments Heart Surgery Daughter 1 Diabetes Father Diabetes Mother Diabetes Sister Relation Name Status Comments Brother Daughter 1 Daughter 2 Alive Father Mother Sister Alive Social History Tobacco Use Types Packs/Day Years Used Date Smoking Tobacco: Never Tobacco Cessation:Counseling Given: Not Answered Alcohol Use Standard Drinks/Week Comments Never 0 (1 standard drink = 0.6 oz pur e alcohol) Comments Unknown Sex and Gender Information Value Date Recorded Sex Assigned at Not on file Legal Sex Female 3:19 PM CDT Gender Identity Not on file Sexual Orientation Not on file Last Filed Vital Signs Vital Sign Reading Time Taken Comments Blood Pressure 135/76 01/12/2024 1:00 PM CDT Pulse 89 01/12/2024 1:00 PM CDT Temperature 36.3 ??C (97.3 ??F) 01/12/2024 1:00 PM CD T Respiratory Rate 16 01/12/2024 1:00 PM CDT Oxygen Saturation 93% 01/12/2024 1:00 PM CDT Inhaled Oxygen Concentration - - Weight 52.6 kg (116 lb) 01/12/2024 1:00 PM CDT Height - - Body Mass Index - - Plan of Treatment Upcoming Encounters Date Type Department Care Team (Late st Contact Info) Description 07/19/2024 1:15 PM VIDEO OPERATOR Office Visit [facility] Oncology and Hematology [facility] [address] [place] [address] Ramiro Mcmullen MD [address] [facility] [address] [place] [address] Health Maintenance Due Date Last Done Comments DIABETES ANNUAL FOOT EXAM 1969 DIABETES MICROALBUMIN ANNUAL SCREEN 1969 LDL CHOLESTEROL ANNUAL 1969 DTAP/TDAP/TD VACCINES (1 - Tdap) 1970 Traditional Medicare (ACO) A nnual Wellness Visit 1970 BREAST CANCER SCREENING 1991 FIT-DNA Q 3 years 1996 FIT/FOBT Q 1 year 1996 Flex Sig/CT Colonography Q 5 years 1996 RSV VACCINE (60+ or ) (1 - Risk 60-74 years 1-dose series) 2011 OSTEOPOROSIS SCREENING 2016 INFLUENZA VACCINE (#1) 2024 07/13/2013, 2011 COVID-19 Vaccine ( - 2023-2 5 season) 2024 03/30/2021, 06/27/2020, 06/06/2020 DIABETES HBA1C Q 6 MONTHS 03/19/20242023, 09/03/2022, 05/02/2022, Additional history exists DIABETES ANNUAL RETINAL EXAM 02/05/2025, 03/25/2022, 11/17/2021, Additional history exists COLORECTAL SCREENING 03/15/2031 03/15/2021 Colorectal Cancer Screening 03/15/2031 ZOSTER VACCINE Completed 04/17/2019, 01/30/2019 PNEUMOCOCCAL VACCINE 65+ YEARS Completed 01/19/2020 , 08/22/2018 Procedures Procedure Name Priority Date/Time Associated Diagnosis Comments COMPREHENSIVE METABOLIC PANEL Routine 05/12/2024 12:49 PM VIDEO OPERATOR from Last 3 Months Results * COMPREHENSIVE METABOLIC PANEL (05/12/2024 12:49 PM VIDEO OPERATOR) Blood us Ramiro Mcmullen MD CHEMISTRY ORDERABLES Final Resu lt from Last 3 Months Insurance AETNA MEDICARE SUPP AESSI Care Teams Roller Mill Operator Relationship Specialty Start Date End Date Leola Lentz MD PCP - General Family Practice 11/08/22
[2024-07-14 17:25] VITALS: BP 151/76; PULSE 108; RESP 16; TEMP 36.2; O2SAT 100
--- NOTE | 2024-07-14 17:31 | ED_ITS ---
HPI - Neck Pain/Injury General Chief Complaint: Neck Pain/Injury Stated Complaint: right neck shoulder pain since 05/30 Time Seen by Provider: 07/14/24 20:12 Focused HPI: This is a 74-year-old female who presents to the ED for chief complaint of neck pain ongoing for the past 6 weeks. Patient reports that the pain is reproduced with rightward rotation of her cervical spine. She states that she has occasional radiating pain down into the hand. Denies any inciting injury. States that she was seen by her PCP who got plain x-rays and gave her some pain pills. She describes very tense muscle pain. Denies chest pain, shortness of breath, diaphoresis, syncope, interscapular back pain, focal weakness. GENERAL: Well-appearing, well-nourished, and in no acute distress. HEAD: Normocephalic, atraumatic. CHEST: Clear to auscultation. No respiratory distress. HEART: Regular rate and rhythm. NEURO: Alert and oriented x3. Patient screened in triage and initial orders placed. Additional care and disposition to be based upon diagnostic testing and treatment. Source: patient Mode of arrival: ambulatory Limitations: no limitations Related Data Home Medications ?Medication ?Instructions ?Recorded ?Confirmed ?Last Taken ?Type atorvastatin 20 mg tablet 20 mg PO HS 03/07/21 05/12/24 03/14/21 17:30 History empagliflozin 25 mg tablet 25 mg PO DAILY 03/07/21 05/12/24 03/14/21 08:30 Hist ory (Jardiance) glyburide 5 mg tablet 10 mg PO BID 03/07/21 05/12/24 03/14/21 17:30 History lisinopril 10 mg tablet 10 mg PO DAILY 03/07/21 05/12/24 03/14/21 08:30 History multivitamin 1 tablet PO DAILY 03/07/21 05/12/24 Unknown History omega 9-ojz-euh-fish oil 1,000 mg 1 cap PO DAILY 03/07/21 05/12/24 Unknown History (120 mg-180 mg) capsule (Fish Oil) omeprazole 20 mg-sodium 1 cap PO DAILY 03/07/21 05/12/24 03/14/21 08:30 History bicarbonate 1.1 gram capsule (Zegerid) aspirin 81 mg chewable tablet 81 mg PO BID 09/23/23 05/12/24 Unknown History denosumab 60 mg/mL subcutaneous 60 mg subcut [id number] 09/23/23 05/12/24 Unknown History syringe (Prolia) metformin 850 mg tablet 1,700 mg PO TID 09/23/23 05/12/24 Unknown History Allergies Allergy/AdvReac Type Severity Reaction Status Date / Time No Known Allergies Allergy Verified 05/12/24 10:12 Review of Systems Review of Systems: All systems as dictated in [facility] Past Medical History Medical History (Updated 07/14/24 @ 20:14 by Matthew Shaffer PA-C) History of femur fracture has magda in femur Anemia Encounter for screening colonoscopy HLD (hyperlipidemia) Diabetes Social History Social History (Updated 09/23/23 @ 09:57 by Felicia Smith [facility]) Years smoked: 15 Smoking status: Former smoker Tobacco type: cigarettes Second hand tobacco smoke exposure: No Smoking end date: 01/07/11 Alcohol intake: current Substance use: unknown Substance use type: does not use Do You Feel Safe in your Home?: Yes Lack of Transportation: No Lack of Food: Never True Current Housing: I Have Housing Concerned About Future Housing: No Difficulty Paying Gas/Electric Bills: No Difficulty Paying for Meds: No Currently Unemployed: No Education: High School Diploma/GED Difficulty w/ Childcare or Family Care: No Living arrangements: with family Occupation/Education: retired Gender identity (if verbalized by the patient): Female Spiritual care concerns: No Agree to blood products: Yes Exam Narrative: GENERAL: Well-appearing, well-nourished, and in no acute distress. HEAD: Normocephalic, atraumatic. EYES: PERRLA and EOMI. ENT: Nares clear, no rhinorrhea or epistaxis. Mucous membranes moist. Oropharynx without tonsillar hypertrophy exudate or other lesions. NECK: Supple. No adenopathy or masses. CHEST: No respiratory distress. Clear to auscultation. No wheezes rales or rhonchi HEART: Regular rate and rhythm. No murmur heard. Normal peripheral pulses. ABDOMEN: Soft, nontender, nondistended, normal active bowel sounds. MSK: No midline spinal tenderness. Reproducible right-sided neck pain with right rib rotation of the cervical spine. No pain with left rotation. Mild tenderness to the right trapezius muscle distribution. SKIN: Warm, dry, no rash. NEURO: Alert and oriented x4. No focal deficits. PSYCH: Normal mood and affect. Course Vital Signs Vital signs: Vital Signs Temperature 97.2 F L 07/14/24 17: Pulse Rate 108 H 07/14/24 17:25 Respiratory Rate 16 07/14/24 17:25 Blood Pressure 151/76 H 07/14/24 17:25 Pulse Oximetry 100 07/14/24 17:25 Temperature 97.7 F 07/14/24 20:27 Pulse Rate 88 07/14/24 20:27 Respiratory Rate 18 07/14/24 20:27 Blood Pressure 131/56 L 07/14/24 20: Pulse Oximetry 100 07/14/24 20:27 MDM - Neck Pain/Injury MDM Narrative Medical decision making narrative: This is a 74-year-old female who presents to the ED for chief complaint of right-sided neck pain over the past 6 weeks. Vitals are normal. Exam shows reproducible right-sided neck pain with right rotation of the cervical spine. No strength deficit or neuro deficit. CT cervical spine without contrast: IMPRESSION: 1. Moderate right neural foraminal stenosis at C2-C3. Otherwise mild cervical spondylosis. Presentation is consistent with cervical radiculopathy. Patient was given Rx for prednisone and cyclobenzaprine. Neurosurgery referral given. Patient will be discharged in stable condition. Supportive measures discussed and return precautions given. Patient is understanding and agreeable with plan for discharge with PCP follow-up. Discharge Plan Discharge Clinical Impression: Cervical spondylosis Patient Disposition: Home, Self-Care Condition: Stable Instructions: Antibiotic Form, Cervical Radiculopathy (ED) Additional Instructions: Your exam and imaging today show probable pinched nerve in the right side of the cervical spine. Please take steroid pack and muscle relaxers as prescribed and follow-up with PCP closely on this issue. You should also continue taking anti- inflammatories and pain medications as prescribed by PCP. If you have any new or worsening symptoms please return to the ER for further evaluation. Patient Language: Swedish Prescriptions: New cyclobenzaprine 5 mg tablet 5 mg PO HS PRN (Reason: muscle spasm) Qty: 10 0RF prednisone 20 mg tablet 20 mg PO DAILY 5 Days Qty: 5 0RF No Action aspirin 81 mg tablet,chewable 81 mg PO BID Prolia 60 mg/mL syringe 60 mg subcut [id number] metformin 850 mg tablet 1,700 mg PO TID multivitamin Tablet 1 tablet PO DAILY atorvastatin 20 mg tablet 20 mg PO HS glyburide 5 mg tablet 10 mg PO BID lisinopril 10 mg tablet 10 mg PO DAILY omeprazole-sodium bicarbonate [Zegerid] 20-1.1 mg-gram Capsule 1 cap PO DAILY omega 9-kgw-luj-fish oil [Fish Oil] 1,000 mg (120 mg-180 mg) Capsule 1 cap PO DAILY Jardiance 25 mg tablet 25 mg PO DAILY Follow-up/Referrals: Allison Duckworth MD [Physician[facility],Delia Eastman APRN [Primary Care Provider] - Time of Disposition: 20:14
--- OUTSIDE RECORDS SUMMARY | 2024-07-14 20:22 | XMS_ITS | Clinical Summary ---
Author Organization [facility] Address [address] [address] Care Team Providers Care All Round Logger Name Role Phone Leola Lentz MD Primary Care Provider [phone] Source Comments [facility],non-owned Affiliates and Associated Physician Practices is amultiple site organization consisting of ambulatory clinics and hospital sitesin [place], [place], [place] and [place]. This disclosure is being madepursuant to the Care Everywhere program and may not contain all information available regarding this patient. Last updated 18.[facility] Social History Tobacco Use Types Packs/Day Years [...] age to complete this topic Care Teams All Round Logger Relationship Specialty Start Date End Date Leola Lentz MD [facility] [place] [id number] PCP - General 02/21/15
--- OUTSIDE RECORDS SUMMARY | 2024-07-14 20:22 | XMS_ITS | Encounter Summary ---
Author Organization [facility] Address [address] [place] [address] Care Team Providers Care Rv Technician Name Role Phone Leola Lentz MD Primary Care Provider [phone] Encounter Details Date Type Department Care Team (Late st Contact Info) Description 07/24/2021 Lab Requisition [facility] [address] [place] [address] Sara Reyna MD [address] [place], [place] [id number] Illness, unspecified Social History Tobacco Use Types [...] ON REFERRED CASE Routine 07/20/2021 2:15 PM EQUIPMENT TESTER Illness, unspecified documented in this encounter Results * PATH CONSULT ON REFERRED CASE (07/20/2021 2:15 PM EQUIPMENT TESTER) Final Diagnosis URINE, VOIDED: - Acute inflammation - No malignant cells seen (TPS Category II, negative for high grade urothelial carcinoma) 07/27/2021 10:22 AM EQUIPMENT TESTER [facility] Microscopic Description and Comment Performed. 07/27/2021 10:22 AM EQUIPMENT TESTER [facility] Clinical History Hematuria 07/27/2021 10:22 AM EQUIPMENT TESTER [facility] Disclaimer The performance characteristics of all immunohistochemical and indirect immunofluorescence stains (if any) cited in this report were determined by the Histopathology Laboratory of [facility]. Some of these tests were developed [...] the attending (teaching) pathologist. 07/27/2021 10:22 AM [facility] Addendum 1 Materials received was not included in the original pathology report. Prepared slide received from [facility] [id number]. All material will be returned. 07/27/2021 10:22 AM [facility] Addendum electronically signed by Meliza Jackson on 07/27/2021 at 10:22 AM Case Report Surgical Pathology Report ? Case: [id number] ? Authorizing Provider: ??Sara Reyna MD ? Collected: ? 07/20/2021 02:15 PM ? Ordering Location: ? [facility] ? Received: ?07/24/2021 02:16 PM ? Pathologist: ? Amanda Cornelius MD ? Specimen: ?Slide Consultation ? 07/27/2021 10:22 AM EQUIPMENT TESTER [facility] Embedded Images 07/27/2021 10:22 AM EQUIPMENT TESTER [facility] Pathology/Cytolo gy SURGICAL PATHOLOGY CONSULTATION AND REPORT ON REFERRED SLIDES PREPARED ELSEWHERE / Unknown 07/20/2021 2:15 PM EQUIPMENT TESTER 07/24/2021 2:16 PM EQUIPMENT TESTER Sara Reyna MD LAB - PATHOLOGY/CYTO LOGY ORDERABLES Performing Organization Address City/State/[facility] Co de Phone Number [facility] [address] [phone] documented in this encounter Visit Diagnoses Diagnosis Illness, unspecified documented in this encounter Care Teams Rv Technician Relationship Specialty Start Date End Date Leola Lentz MD [address] [place] [address] PCP - General 02/21/15 documented as of this encounter
--- OUTSIDE RECORDS SUMMARY | 2024-07-14 20:22 | XMS_ITS | Clinical Summary ---
Author Organization [facility] [address] Address [address] [place] [address] Care Team Providers Care Account Support Associate Name Role Phone Prince Morse MD Unavailable [phone] Leola Lentz MD Primary Care Provider [phone] Allergies No known active allergies Medications glyBURIDE [...] PATIENT IS TAKING OTC CITRACAL Activ e vehsi-8-lqe-ep a-dpa-fish oil 1,050-1,200 mg capsule 1 capsule [...] 14 Active ubidecarenone- omega 3-vit E (Co H-47-Vmkuxep E-Fish Oil) 25-150-200 mg-mg-unit capsule Co R-27-Fejjkuv E-Fish Oil 25-150-200 mg-mg-unit capsule 12/20/19 21 [...] but we will rule out primary aldosteronism, Whiting's, androgen excess, and pheochromocytoma with the appropriate [...] on file Legal Sex Female 7:05 PM HOTEL DIRECTOR Gender Identity Not on file Sexual Orientation Not on file Obstetrics History Last Filed Vital Signs Vital Sign Reading Time Taken Comments Blood Pressure 145/81 08/05/2023 9:30 AM HOTEL DIRECTOR Pulse 96 08/05/2023 9:30 AM HOTEL DIRECTOR Temperature 36.3 ??C (97.4 ??F) 08/05/2023 9:30 AM CS T Respiratory Rate 16 08/05/2023 9:30 AM HOTEL DIRECTOR Oxygen Saturation 98% 08/05/2023 9:30 AM HOTEL DIRECTOR Inhaled Oxygen Concentration - - Weight 55 kg (121 lb 3.2 oz) 08/05/2023 9:30 AM HOTEL DIRECTOR Height 162.6 cm (5' 4 ) 08/05/2023 9:30 AM HOTEL DIRECTOR Body Mass Index 20.8 08/05/2023 9:30 AM HOTEL DIRECTOR Plan of Treatment Health Maintenance Due Date [...] PM CDT Performed at: ??01 - [facility] [address] ??[id number] Mold Shaker: Daniel Horowitz PhD, Phone: ??[phone] Prince Morse MD LAB BLOOD ORDERABLES Fi nal Result [facility] - 01 from Last 3 Months or Most Recently Relevant to Health Maintenance Insurance MEDICARE AETNA SENIOR SUPPLEMENT MEDICARE AET SENIOR SUPPLEMENT MEDICARE AETNA SENIOR SUPPLEMENT AETNA MEDICARE [facility] Address: [address] [address] [place] [address] AETNA SENIOR SUPPLEMENT Care Teams Account Support Associate Relationship Specialty Start Date End Date Leola Lentz MD [facility] [address] PCP - General Family Medicine 01/22/21 Prince Morse MD [address] [facility] [address] [place] [address] Consulting Physician Endocrinology Diabetes & Metabolism 01/17/21
--- OUTSIDE RECORDS SUMMARY | 2024-07-14 20:22 | XMS_ITS | Patient Health Summary ---
Author Organization [facility] Address [address] [address] Care Team Providers Care Clockmaker Name Role Phone Leola Lentz MD Primary Care Provider [phone] Note from [facility],non-owned Affiliates and Associated Physician Practices is amultiple site organization consisting of ambulatory clinics and hospital sitesin [place], [place], [place] and [place]. This disclosure is being madepursuant to the Care Everywhere program and may not contain all information available regarding this patient. Last updated 18.[facility] Social History Tobacco Use Types Packs/Day Years Used Date Smoking Tobacco: Never Assessed Sex and Gender Information Value Date Recorded Sex Assigned at Not on file Gender Identity Not on file Sexual Orientation Not on file Procedures * PATH CONSULT ON REFERRED CASE(Performed 07/20/2021) Performed for Illness, unspecified Results * PATH CONSULT ON REFERRED CASE (07/20/2021 2:15 PM MANAGER GROCERY) Final Diagnosis URINE, VOIDED: - Acute inflammation - No malignant cells seen (TPS Category II, negative for high grade urothelial carcinoma) 07/27/2021 10:[address] [facility] Microscopic Description and Comment Performed. 07/27/2021 10:[address] [facility] Clinical History Hematuria 07/27/2021 10:[address] [facility] Disclaimer The performance characteristics of all immunohistochemical and indirect immunofluorescence stains (if any) cited in this report were determined by the Histopathology Laboratory of [facility]. Some of these tests were developed by [...] pathologist. 07/27/2021 10:22 AM [facility] Addendum 1 Materials received was not included in the original pathology report. Prepared slide received from Urology [facility] [id number]. All material will be returned. 07/27/2021 10:22 AM [facility] Addendum electronically signed by Meliza Jackson on 07/27/2021 at 10:22 AM Case Report Surgical Pathology Report ? Case: [id number] ? Authorizing Provider: ??Sara Reyna MD ? Collected: ? 07/20/2021 02:15 PM ? Ordering Location: ? [facility] ? Received: ?07/24/2021 02:16 PM ? Pathologist: ? Amanda Cornelius MD ? Specimen: ?Slide Consultation ? 07/27/2021 10:[address] [facility] Embedded Images 07/27/2021 10:22 AM MANAGER GROCERY [facility] Pathology/Cytolo gy SURGICAL PATHOLOGY CONSULTATION AND REPORT ON REFERRED SLIDES PREPARED ELSEWHERE / Unknown 07/20/2021 2:15 PM MANAGER GROCERY 07/24/2021 2:16 PM MANAGER GROCERY Sara Reyna MD LAB - PATHOLOGY/CYTO LOGY ORDERABLES Performing Organization Address City/State/[facility] Co de Phone Number [facility] [address] [phone] Care Teams Clockmaker Relationship Specialty Start Date End Date Leola Lentz MD [address] [place] [address] [address] [place] [id number] PCP - General 02/21/15
--- OUTSIDE RECORDS SUMMARY | 2024-07-14 20:22 | XMS_ITS | Referral Summary ---
Author Organization [facility] Address [address] [address] Care Team Providers Care Support Clerk Name Role Phone Leola Lentz MD Primary Care Provider [phone] Source Comments [facility],non-owned Affiliates and Associated Physician Practices is amultiple site organization consisting of ambulatory clinics and hospital sitesin [place], [place], [place] and [place]. This disclosure is being madepursuant to the Care Everywhere program and may not contain all information available regarding this patient. Last updated 18.[facility] [employer] Social History Tobacco Use Types Packs/Day Years Used Date Smoking Tobacco: Never Assessed Sex and Gender Information Value Date Recorded Sex Assigned at Not on file Gender Identity Not on file Sexual Orientation Not on file Plan of Treatment Not on file Care Teams Support Clerk Relationship Specialty Start Date End Date Leola Lentz MD [address] [place] [address] [address] [place] [id number] PCP - General 02/21/15
--- OUTSIDE RECORDS SUMMARY | 2024-07-14 20:22 | XMS_ITS | CONTINUITY OF CARE DOCUMENT ---
Author Name iftikhar buitrago Address Unknown Organization [facility] Address [address] [place] [address] [address] [place] [address] Phone [phone] Care Team Providers Care Tank Storage Supervisor Name Role Phone Vivek MO, Radames Unavailable [place], RUNDA Unavailable [phone] [place], RUNDA Unavailable PROBLEMS Condition Status Date Provider Notes Irregular heart beats active Radames Dior Hyperlipidemia active Radames Doyle MD Diabetes mellitus active Radames Doyle MD PVC's active Radames Doyle MD Dizziness active Radames Doyle MD ARTHRITIS active Radames Doyle MD Palpitations active Radames Doyle MD Shortness of breath stress n uc --stress nuc inf wall ischemia, echo nl LVEF mild TR 12/2020 active Radames Doyle MD Abnormal cardiovascular stre ss test--20% mid RCA with ectasia, tortous LAD, Circ, EF 60% active Radames Doyle MD Carcinoid syndrome completed - Radames Doyle MD Right adrenal mass active Chris Jung ENCOUNTERS Date Type Provider Location Encounter Diag nosis - In-person encounter Office Visit Radames Doyle MD [facility] Shortness of breath stress nuc --stress nuc inf wall ischemia, echo nl LVEF mild TR bnormal cardiovascular stress test--20% mid RCA with ectasia, tortous LAD, Circ, EF 60%Carcinoid syndrome - In-person encounter Office Visit Radames Doyle MD [facility] Shortness of breath stress nuc --stress nuc inf wall ischemia, echo nl LVEF mild TR bnormal cardiovascular stress test--20% mid RCA with ectasia, tortous LAD, Circ, EF 60%Right adrenal mass - In-person encounter Office Visit Radames Doyle MD [facility] PVC'sDizzinessARTHRITI SPalpitations VITAL SIGNS Date Observation [...] onda Lissa height E&M 64 [in_i] Cookie Lsisa Body Mass Index (Ratio) 23.86 kg/m2 Karlos Doyle MD blood pressure, diastolic 68 mm[Hg] Sklya nkLogic blood pressure, systolic 124 mm[Hg] Lola [...] & VIT D3 BONE HEALTH LIQD active [facility] Co G-11-Zyerepu E-Fish Oil 25-150-200 mg-mg-unit capsule active [facility] CALCIUM MAGNESIUM 750 300-300 MG TABS [facility] metformin 850 mg tablet [facility], 90 days supply, Filled 10/10/2020 glyburide 5 mg tablet [facility], 90 days supply, Filled 10/23/2020 Jardiance 25 mg tablet [facility], 90 days supply, Filled 11/22/2020 Trulicity 1.5 mg/0.5 mL pen injector [facility], 28 days supply, Filled [...] Policy type / Coverage type Ellis red libertarian ID AETNA SENIOR [facility] Commercial insuran company [id number] [place] MED[place] Medicare [id number] TREATMENT PLAN Date Name Performer [id number],S, Jose Mantillamedza i [id number],S, Jose Ahmedza i [id number],S, Jose Ahmedza i [id number],S, Jose nAnaleemedza i [id number],S, Jose Mantillamedza i [id number],S, Chris Jung [id number],S, Chris Jung [id number],S, Chris Jung [id number],W, Chris Jung [id number],W, T he risks and benefits of the [...] informed consent was given out. Chris Jung [id number],S, Chris Jung [id number],S, Chris Jung [id number],SRadames MD [id number],SRadames MD [id number],SRadames MD [id number],SRadames MD [id number],SRadames MD Cardiology Jose Mendoza Cardiology Jose Mendoza [...]
--- OUTSIDE RECORDS SUMMARY | 2024-07-14 20:22 | XMS_ITS | Referral Summary ---
Author Organization [facility] [address] Address [address] [place] [address] Care Team Providers Care Pit Slagman Name Role Phone Prince Morse MD Unavailable [phone] Leola Lentz MD Primary Care Provider [phone] Allergies No known active allergies Medications glyBURIDE [...] PATIENT IS TAKING OTC CITRACAL Activ e bjjny-9-mss-ep a-dpa-fish oil 1,050-1,200 mg capsule 1 capsule [...] 14 Active ubidecarenone- omega 3-vit E (Co J-06-Mtlpsvs E-Fish Oil) 25-150-200 mg-mg-unit capsule Co Z-33-Ghzzmcp E-Fish Oil 25-150-200 mg-mg-unit capsule 12/20/19 21 [...] but we will rule out primary aldosteronism, Nye's, androgen excess, and pheochromocytoma with the appropriate [...] on file Legal Sex Female 7:05 PM GUEST SERVICES ASSISTANT Gender Identity Not on file Sexual Orientation Not on file Last Filed Vital Signs Vital Sign Reading Time Taken Comments Blood Pressure 145/81 08/05/2023 9:30 AM GUEST SERVICES ASSISTANT Pulse 96 08/05/2023 9:30 AM GUEST SERVICES ASSISTANT Temperature 36.3 ??C (97.4 ??F) 08/05/2023 9:30 AM CS T Respiratory Rate 16 08/05/2023 9:30 AM GUEST SERVICES ASSISTANT Oxygen Saturation 98% 08/05/2023 9:30 AM GUEST SERVICES ASSISTANT Inhaled Oxygen Concentration - - Weight 55 kg (121 lb 3.2 oz) 08/05/2023 9:30 AM GUEST SERVICES ASSISTANT Height 162.6 cm (5' 4 ) 08/05/2023 9:30 AM GUEST SERVICES ASSISTANT Body Mass Index 20.8 08/05/2023 9:30 AM GUEST SERVICES ASSISTANT Plan of Treatment Not on file Procedures [...] PM CDT Performed at: ??01 - [facility] [address] ??[id number] Composition Instructor: Daniel Horowitz PhD, Phone: ??[phone] us Prince Morse MD LAB BLOOD ORDERABLES Fi nal Result [facility] - 01 from Last 3 Months or Most Recently Relevant to Health Maintenance Insurance MEDICARE AET SENIOR SUPPLEMENT MEDICARE AETNA SENIOR SUPPLEMENT MEDICARE AETNA SENIOR SUPPLEMENT AETNA MEDICARE AETNA SENIOR SUPPLEMENT Care Teams Pit Slagman Relationship Specialty Start Date End Date Leola Lentz MD [facility] [place] [address] PCP - General Family Medicine 01/22/21 Prince Morse MD [address] [address] [address] Consulting Physician Endocrinology Diabetes & Metabolism 01/17/21
[2024-07-14 20:27] VITALS: BP 131/56; PULSE 88; RESP 18; TEMP 36.5; O2SAT 100
[2024-07-14] MEDS: predniSONE 20 MG TABLET 40 MG PO (20:27)
[2024-07-14] MEDS: CYCLOBENZAPRINE HCL 5 MG TABLET PO (20:27)
== END 2024-07-14 20:32 | disposition home or self-care (01) ==
LOC: ANHED 20:20
PROVIDERS: Emergency Provider Physician Assistant
DX: M47.812 Spondylosis without myelopathy or radiculopathy, cervical region (principal); M48.02 Spinal stenosis, cervical region; E11.9 Type 2 diabetes mellitus without complications; E78.5 Hyperlipidemia, unspecified; Z87.891 Personal history of nicotine dependence; Z79.82 Long term (current) use of aspirin; Z79.899 Other long term (current) drug therapy; Z79.84 Long term (current) use of oral hypoglycemic drugs
CPT/HCPCS: 36415; 72125; 82607; 82728; 82746; 83540; 83550; 84443; 85025; 99284; A9270; J7512

== ENCOUNTER 2024-10-18 11:48 | Outpatient (CLI) | payer MEDICARE, SELFPAY ==
--- NOTE | ~2024-10-18 | US_ITS ---
US axilla LT 10/18/2024 12:03 Indication: Localized swelling left upper extremity Procedure: High-resolution Limited ultrasound of the left shoulder and axilla Comparison: No prior studies for comparison. Findings: In the area of palpable concern in the left upper extremity there is an oval heterogeneous mass measuring 3.2 x 5.2 x 1.5 cm. No significant internal vascularity or posterior features. Impression: 1: Complex heterogeneous upper extremity mass in the area of palpable concern measuring 5.2 x 3.2 x 1 .5 cm. Differential diagnosis includes benign etiologies such as atypical lipoma, infectious/inflamma tory process (i.e. phlegmon), posttraumatic change (i.e. maturing hematoma) and less likely malignanc y. Reviewed, dictated and finalized at location A. Impression: 1: Complex heterogeneous upper extremity mass in the area of palpable concern m easuring 5.2 x 3.2 x 1.5 cm. Differential diagnosis includes benign etiologies such as atypical lipoma, infectious/inflammatory process (i.e. phlegmon), postt raumatic change (i.e. maturing hematoma) and less likely malignancy.
== END 2024-10-18 11:49 | disposition home or self-care (01) ==
LOC: GOSHIMG 11:49
DX: R22.32 Localized swelling, mass and lump, left upper limb (principal)
CPT/HCPCS: 76882

== ENCOUNTER 2025-02-11 10:00 | Outpatient (RCR) | payer MEDICARE, SELFPAY ==
--- NOTE | 2025-01-06 11:04 | OPREHPOC ---
Outpatient Therapy Plan of Care This is a Multidisciplinary Plan of Care that may contain components documented by all disciplines (PT, OT, and ST.) PT Problem 1 PT Problem #1 Knowledge Deficit PT Goal 1 Goal / Goal Update *independent with HEP Target Visit 8 PT Problem 2 PT Problem #2 Pain PT Goal 1 Goal / Goal Update 1* pt report pain at worst of L thigh at 5/10 2* no pain increase with transfer from sitting to standing position 3* pt report no pain with getting in/out of car Target Visit 8 PT Problem 3 PT Problem #3 Impaired Strength PT Goal 1 Goal / Goal Update 1*increase strength of R and L LE to gross 4/5 single leg standing x 6 seconds with good stability 2* R 3* L 4* pt report walking for fitness 20 minutes Target Visit 8 PT Problem 4 PT Problem #4 Impaired Flexibility PT Goal 1 Goal / Goal Update increase flexibility of both hips to decrease strain and pull on hip and lumbar spine: hamstring length with supine SLR to 60' 1* R 2* L anterior hip-quad length with prone knee flexion to 125' 3* R 4* L piriformis stretch with supine cross leg, pt report NO pulling over hip 5* R 6* L Target Visit 8
--- NOTE | 2025-01-06 11:04 | PTOPEVAL1 ---
Assessment and note entered by Ivelisse Coronel, PT Evaluation Information Assessment Status Evaluation ICD-10 Condition Codes (PT) Pain in left hip M25.552 Other ICD-10 Condition Codes ( L hip bursitis M70.62 PT) Onset 6 months Subjective Information gradual increase in pain of L hip/thigh after immobility due to neck & R shoulder pain and had ablation- no longer have; pain in her hip with sitting and go to stand up and first 5-6 steps then better; getting in/out car, lifting leg hurts have had several falls and fear of falling; when put her L foot down, sometimes get sharp pain; history of: ORIF L femur and R foot fracture/ immobilized activity: at home with ; is walking as much as she normally does; have home pedal machine-passive, use 30 minutes, 2-3x/day; Reported Pain Level Pain Score 0: Self Report Additional Pain Score Comments pain range of 0-10/10 in the past week; lateral thigh and hip to lateral knee; catch in lateral thigh increase pain: sit and then stand up,get sharp pain that eases after walking 5-6 steps; lift leg in/out car; sit and push foot into her shoe decrease pain: rest is not taking any meds sometimes L foot is swollen and have hammer toe; have some pain with walking too much in L hip after ORIF surgery Assessment PT Clinical Summary Margie has the diagnosis of L trochanteric bursitis . She reports gradual increase in pain and LE functional scale rating of 59% limitation in activity level. Her history includes L hip ORIF due to fall, R foot fracture with immobilization due to fall, L foot pain with hammer toe; Reports a fear of falling and since hip fracture about 4 years ago, has had a decline in walking and strength/activity level. With the evaluation: she has weakness of both legs and trunk; tightness of bilateral hamstrings, quads, piriformis muscles; tenderness and spasms over L mid quad and entire length of ITB; posture of rounded shoulders and trunk and flat lumbar spine. Skilled PT services are indicated for modalities PRN for pain and spasms, therapeutic exercises and activities to increase LE strength and flexibility with education for HEP and safety, to decrease fear of falling. Plan of Care Interventions Electrical Stimulation,Hot Pack/Cold Pack,Manual Therapy,Neuro Re-education,Patient/Caregiver Education,Therapeutic Activities,Therapeutic Exercise,Ultrasound,Other Other Interventions taping PT Services Indicated Yes Treatment Frequency and 1-2x/wk for 8 visits Duration These treatments will address the objective and functional deficits as defined above. The patient will be advanced safely and appropriately in order for the patient to progress towards his/her prior level of function. Additional exercises will be introduced and as well as a comprehensive home exercise program upon discharge, if needed, ?to ensure carryover of functional gains achieved in the clinic. This treatment plan has been reviewed and agreement upon by the patient.
--- NOTE | 2025-02-11 10:52 | OPREHPOC ---
Outpatient Therapy Plan of Care This is a Multidisciplinary Plan of Care that may contain components documented by all disciplines (PT, OT, and ST.) PT Problem 1 PT Problem #1 Knowledge Deficit PT Goal 1 Goal / Goal Update *independent with HEP 02-11-25 d/c goal met Target Visit 8 Progress Met PT Problem 2 PT Problem #2 Pain PT Goal 1 Goal / Goal Update 1* pt report pain at worst of L thigh at 5/10 2* no pain increase with transfer from sitting to standing position 3* pt report no pain with getting in/out of car 02-11-25 d/c goal 3 met; #1 8/10 at worst; #2 pain with sit to stand sometimes Target Visit 8 Progress Partially Met PT Problem 3 PT Problem #3 Impaired Strength PT Goal 1 Goal / Goal Update 1*increase strength of R and L LE to gross 4/5 single leg standing x 6 seconds with good stability 2* R 3* L 4* pt report walking for fitness 20 minutes 02-11-25 d/c goal 1,3 met: #2 is 4 seconds; #4- has not yet returned to fitness walking Target Visit 8 Progress Partially Met PT Problem 4 PT Problem #4 Impaired Flexibility PT Goal 1 Goal / Goal Update increase flexibility of both hips to decrease strain and pull on hip and lumbar spine: hamstring length with supine SLR to 60' 1* R 2* L anterior hip-quad length with prone knee flexion to 125' 3* R 4* L piriformis stretch with supine cross leg, pt report NO pulling over hip 5* R 6* L 02-11-25 d/c goals- all met Target Visit 8 Progress Met
--- NOTE | 2025-02-11 10:52 | PTOPDC ---
Assessment and note entered by Ivelisse Coronel, PT Assessment Status Discharge ICD-10 Condition Codes (PT) Pain in left hip M25.552 Other ICD-10 Condition Codes ( L hip bursitis M70.62 PT) Onset 6 months Subjective Information few days ago had pain when reaching into new washer and bent over too far- hit L trunk on edge of machine, hurts trunk, shoulder; doing the exercises at home; have not tried any walking for fitness yet; Reported Pain Level Pain Score Self Report Additional Pain Score Comments pain range of 0-8/10; catching over upper ITB; increase pain: sit to stand, standing 5-10 minutes with cooking decrease pain: stretch, walk, move leg no problems getting in/out car Assessment PT Clinical Summary Margie has received 7 PT sessions. She has improved in all areas: today reports pain range of 0-8/10; self assessment with LE functional scale rating of 36% limitation in activity level; 2 minute walking test distance of 450'; increase strength of bilateral hips; increase flexibility of bilateral hamstrings, piriformis and anterior hip-quad muscle groups; education for HEP and body mechanics. The goals were partially met. Discharge PT. She is to continue with the HEP. Plan of Care PT Services Indicated No
== END 2025-02-11 14:10 | disposition home or self-care (01) ==
LOC: ANHPT 10:00
PROVIDERS: Visit Provider Physician Assistant Surgical
DX: M25.552 Pain in left hip (principal); M70.62 Trochanteric bursitis, left hip
CPT/HCPCS: 97110; 97140; 97161; 97530